=== PATIENT | female | born 1955 | race African-American/Black ===

== ENCOUNTER 2017-12-17 16:27 | Inpatient (IN) | payer MEDICARE, OTHER ==
--- NOTE | 2017-12-17 16:53 | ED Physician Chart ---
ED Chief Complaint/HPI - Patient Information Date Seen:: 12/17/17 Time Seen:: 16:40 Chief Complaint:: Diarrhea History of Present Illness:: onset x 2 days of intermittent, diffuse, crampy abdominal pain, N/V/D, hematochezia, and melena; no report of trauma, H/As, S/T, neck pain, C/P, SOB, cough, A/C, fever, chills, or urinary s/s Historian:: Patient, EMS Review:: Nurse's Note Reviewed, Old Chart Reviewed, EMS run form Reviewed ED Past Medical History - Past Medical History Obtainable: Yes Past Medical History: HTN, Asthma/COPD, PUD/GERD, Dementia, Other (Cirrhosis) Family History: Diabetes Melitus, HTN Social History: Smoker, Alcohol, No Drug Use, Single, Care Facility Surgical History: None Psychiatricy History: Dementia Medication: Reviewed ED Physical Exam - Physical Examination General/Constitutional: Awake, Well-developed, well-nourished, Alert, No distress, GCS 15, Non-toxic appearing, Ambulatory Head: Atraumatic Eyes: Lids, conjuctiva normal, PERRL, EOMI Skin: Nl inspection, No rash, No skin lesions, No ecchymosis, Well hydrated, No lymphadenopathy ENMT: External ears, nose nl, TM canals nl, Nasal exam nl, Lips, teeth, gums nl , Oropharynx nl, Tonsils nl Neck: Nontender, Full ROM w/o pain, No JVD, No nuchal rigidity, No bruit, No mass, No stridor Respiratory: Nl effort/Exclusion, Clear to Auscultation, No Wheeze/Rhonchi/Rales Cardio Vascular: RRR, No murmur, gallop, rubs, NL S1 S2, Carotid/Femoral/Distal pulses equal bilaterally GI: No tenderness/rebounding/guarding, No organomegaly, No hernia, Normal BS's, Nondistended, No mass/bruits, No McBurney tenderness : No CVA tenderness Extremities: No tenderness or effusion, Full ROM, normal strength in all extremities, No edema, Normal digits & nails Neuro/Psych: Alert/oriented, DTR's symmetric, Normal sensory exam, Normal motor strength, Judgement/insight normal, Mood normal, Normal gait, No focal deficits Misc: Normal back, No paraspinal tenderness ED Labs/Radiology/EKG Results - Lab Results Comments:: WBC: 11.7; H/H; 9.3/27.9;; Na+: 130; K+: 6.2; BUN: 107; Cr: 3.6;; Glucose: 19; LA: 7.66; Troponin: 0.19; Ammonia: 64 - Radiology Results Comments:: CXR: + infiltrate; CM - EKG Interpretations EKG Time:: 17:34 Rate & Rhythm: 88; NSR Comments:: LVH; non-specific st-t changes ED Septic Shock - . Is Septic Shock (SBP<90, OR Lactate>4 mmol\L) present?: No ED Reassessment (Disposition) - Reassessment Reassessment Condition:: Improved - Diagnosis Diagnosis:: Dx: Leukocytosis; AMS; ALOC; DM; ESRD; Pre-Renal Azotemia; Hyponatremia; Anemia ; Hyperkalemia; Sepsis; Hepatic Encephalopathy; Myocardial Ischemia; Acidosis; Hypoglycemia; PNA; Cirrhosis; Hepatitis - Aftercare/Follow up Instructions Aftercare/Follow-Up Instructions:: Counseled pt regarding lab results/diagnosis & need follow up, Counseled pt & family regarding lab results/diagnosis & need follow up - Patient Disposition Discharge/Transfer:: Acute Care w/in this hosp Accepting Physician:: Dr. Tinoco Time Called:: 1829 Time Responded:: 18:30 Admitted to:: ICU Spoke to:: Dr. Tinoco Admitting Medical Physician:: Dr. Tinoco Condition at Disposition:: Stable, Improved
[2017-12-17] MEDS ORDERED: Sodium Chloride 0.9% 1,000 ML IV ONE ×3 (16:54→20:01)
[2017-12-17 17:42] LABS: % BASOPHILS 0.3 % (0.0-2.0); % EOSINOPHILS 0.2 % (0.0-5.0); % MONOCYTES 8.3 % (2.0-10.0); % NEUTROPHILS 79.2 % (40.0-80.0); HEMATOCRIT 27.9 % (41.0-60); HEMOGLOBIN 9.3 gm/dL (12-16); LYMPHOCYTE ABSOLUTE 1.4 Th/cmm (1.5-3.0); MEAN CELL VOLUME 92.5 fl (81-100); MEAN CORPUSCULAR HEMOGLOBIN 30.9 pg (27.0-31.0); MEAN CORPUSCULAR HGB CONC 33.4 pg (28.0-36.0); MEAN PLATELET VOLUME 7.6 fl; NEUTROPHILE ABSOLUTE 9.3 Th/cmm (1.8-8.0); PLATELET COUNT 123 Th/cmm (150-400); RED BLOOD COUNT 3.01 Mil/cmm (3.80-5.10); RED CELL DISTRIBUTION WIDTH 15.6 % (11.5-20.0); WHITE BLOOD COUNT 11.7 Th/cmm (4.8-10.8)
[2017-12-17 17:51] LABS: ALB/GLOB RATIO 0.4 (1.0-1.8); ANION GAP 24.9 (7.0-16.0); BILIRUBIN,TOTAL 3.2 mg/dL (0.3-1.0); CALCIUM SERUM 9.6 mg/dL (8.6-10.3); CARBON DIOXIDE 19.3 mEq/L (21.0-31.0); CREATININE - SERUM 3.6 mg/dL (0.6-1.2); GFR AFRICAN-AMERICAN 16.5 ml/min (>90); GFR NON AFRICAN-AMERICAN 13.7 ml/min; TOTAL PROTEIN,SERUM 6.6 gm/dL (6.0-8.3)
[2017-12-17 17:57] LABS: INR 2.33 (0.5-1.4); PROTHROMBIN TIME (TEST) 25.4 SECONDS (9.5-11.5)
[2017-12-17 17:59] LABS: POTASSIUM SERUM 6.2 mEq/L (3.5-5.1)
[2017-12-17] MEDS ORDERED: Dextrose 50% 50 mL Abboject IVP ONE (18:05)
[2017-12-17] MEDS ORDERED: Dextrose 50% 50 mL Abboject IVP STA (18:14)
[2017-12-17] MEDS ORDERED: INSULIN HUMAN REGULAR 100 UNITS/ML UNIT IV ONE (18:15)
[2017-12-17] MEDS ORDERED: Sodium Bicarbonate 8.4% 50mEq PFS IVP STA (18:16)
[2017-12-17] MEDS ORDERED: Calcium Gluconate 1 GM in Dextrose 5% 100 ML IV ONE (18:17)
[2017-12-17] MEDS ORDERED: Sodium Bicarbonate 8.4% 50mEq PFS IVP ONE (18:29)
[2017-12-17] MEDS ORDERED: Levofloxacin 500mg/100mL 500 MG/100 ML BAG IV ONE ×2 (18:30→19:10)
[2017-12-17] MEDS ORDERED: INSULIN ASPART, RECOMBINANT 100 UNITS/ML SUBQ ONE (18:52)
[2017-12-17] MEDS ORDERED: Mag Sulfate 2gm/50mL Premix 2 GM/50 ML BAG IV PRN (19:44)
[2017-12-17] MEDS ORDERED: Potassium Chloride 20 mEq ER Tab PO PRN (19:44)
[2017-12-17 20:10] LABS: URINE MICROSCOPIC INDICATED? YES; URINE SOURCE FOLEY PORT
[2017-12-17 20:11] LABS: URINE BILIRUBIN NEGATIVE (NEGATIVE); URINE BLOOD TRACE (NEGATIVE); URINE GLUCOSE (UA) NEGATIVE (NEGATIVE); URINE KETONE NEGATIVE (NEGATIVE); URINE LEUKOCYTE ESTERASE MODERATE (NEGATIVE); URINE NITRATE NEGATIVE (NEGATIVE); URINE PROTEIN NEGATIVE (NEGATIVE); URINE UROBILINOGEN 0.2 E.U./dL (0.2 - 1.0)
[2017-12-17 20:17] LABS: URINE CLARITY CLOUDY (CLEAR); URINE COLOR YELLOW
[2017-12-17 20:20] LABS: URINE AMORPHOUS SEDIMENT FEW URATES (NONE SEEN); URINE BACTERIA MANY /hpf (NONE SEEN); URINE EPITHELIAL CELLS OCCASIONAL /lpf (FEW)
[2017-12-17] MEDS: D5-0.9%NS 1,000 ML IV SCH (21:40)
[2017-12-17] MEDS: Morphine Sulfate 4 mg/mL 1mL Syr IVP PRN (22:27)
--- NOTE | 2017-12-17 23:31 | Consultation ---
Consult Note - Consult Note Service Date: 12/17/17 Referring Physician: Brennan Tinoco Consult Note: PHYSICIAN Consultation Note: Date of Admission: 12/17/17 Purpose of Consultation: Sepsis 2/2 UTI Chief Complaint: Patient PITER TURNER was admitted to location Intensive Care Unit with SEPSIS. History of Present Illness: 62 year-old female with history of ...... Past Medical History: Allergies Allergy/AdvReac Type Severity Reaction Status Date / Time No Known Allergies Allergy Verified 12/17/17 16:50 Vital Signs Temp 97.1 F 12/17/17 20:15 Pulse 103 12/17/17 23:00 Resp 14 12/17/17 23:00 BP 93/39 12/17/17 23:00 Pulse Ox 96 12/17/17 23:00 Intake & Output 12/17/17 12/17/17 12/18/17 06:59 18:59 06:59 Intake Total 1000 Output Total 300 Balance 700 Weight (lbs) 49.895 kg Intake: Intake, IV Amount 1000 Output: Urine 300 Other: Weight Source Estimated Laboratory Results - last 24 hr 12/17/17 12/17/17 12/17/17 19:34 19:40 19:50 POC Glucose 168 H Whole Bld Lactic Acid 8.44 H* Urine Source [place] Urine Color YELLOW Urine Clarity CLOUDY H Urine pH 5.0 Ur Specific Hob[place] 1.025 Urine Protein NEGATIVE Urine Glucose (UA) NEGATIVE Urine Ketones NEGATIVE Urine Blood TRACE Urine Nitrate NEGATIVE Urine Bilirubin NEGATIVE Urine Urobilinogen 0.2 Ur Leukocyte Esterase MODERATE H Urine RBC 10-25 H Urine WBC 6-10 H Ur Epithelial Cells OCCASIONAL Calcium Oxalate Crystal FEW Amorphous Sediment FEW URATES Urine Bacteria MANY H Home Medication Medication Instructions Recorded Type Dronabinol [Marinol] 5 mg PO BID 12/17/17 History Ferrous Sulfate [Iron] 325 mg PO BID 12/17/17 History Folic Acid [Folate*] 1 mg PO DAILY 12/17/17 History Furosemide [Lasix] 40 mg PO BID 12/17/17 History Guaifenesin DM [Robitussin DM] 10 ml PO Q6HR PRN 12/17/17 History Lactulose 30 ml PO Q8H 12/17/17 History Levothyroxine Sodium 50 mcg PO DAILY 12/17/17 History Lidocaine 5% Patch [Lidoderm 5% 1 patch TP DAILY 12/17/17 History Patch] Multivitamin with Minerals 1 tab PO DAILY 12/17/17 History [Multivitamins with Minerals] Rifaximin [Xifaxan] 550 mg PO BID 12/17/17 History Spironolactone 50 mg PO BID 12/17/17 History Tramadol HCl [Ultram] 50 mg PO Q4H PRN 12/17/17 History Zinc Oxide Ointment [Zinc Oxide] 1 appl TP QSHIFT 12/17/17 History Current Medications Generic Name Dose Route Start Last Admin Trade Name Freq PRN Reason Stop Dose Admin Acetaminophen 650 mg 12/17/17 19:44 Tylenol PO 02/15/18 19:43 Q6H PRN HEADACHE/TEMP ABOVE 100F Sodium Chloride 1,000 mls @ 100 mls/hr 12/17/17 16:54 12/17/17 17:54 Nacl 0.9% IV 12/18/17 02:53 100 mls/hr .Q10H ONE Administration Dextrose/Sodium Chloride 1,000 mls @ 125 mls/hr 12/17/17 19:45 12/17/17 21:40 D5-0.9%Ns IV 02/15/18 19:44 125 mls/hr .Q8H WALKER Administration Magnesium Sulfate 2 gm in 50 mls @ 25 mls/hr 12/17/17 19:44 Magnesium Sulfate Premix IV 02/15/18 19:43 DAILY PRN Magnesium level less than 1.6 Lorazepam 1 mg 12/17/17 19:44 Ativan IVP 02/15/18 19:43 Q4HR PRN Anxiety Protocol Magnesium Oxide 400 mg 12/17/17 19:44 Mag-Oxide PO 02/15/18 19:43 BID PRN Mg less than 1.9 Miscellaneous 1 ea 12/17/17 19:43 Vancomycin Iv Per Pharmacy 02/15/18 19:42 PRN PRN PROTOCOL Morphine Sulfate 1 mg 12/17/17 19:44 12/17/17 22:27 Morphine IVP 02/15/18 19:43 1 mg Q4HR PRN Administration Severe Pain Ondansetron HCl 4 mg 12/17/17 19:44 Zofran IVP 02/15/18 19:43 Q6H PRN Nausea / Vomiting Potassium Chloride 40 meq 12/17/17 19:44 Klor-Con PO 02/15/18 19:43 DAILY PRN k level less than 3.5 Zolpidem Tartrate 10 mg 12/17/17 19:44 Ambien PO 02/15/18 19:43 HS PRN Insomnia Review of Systems: A 12 point ROS was reviewed with the pertinent positive and negatives noted in the HPI. Family Medical History [place]. Physical Exam: General: CACHECTIC, NO IN DISTRESS,ORAL HYGIENE IS VERY POOR HEENT: Head normocephalic, atraumatic. Oral cavity: moist, pink tongue, eyes: pallor is present. no icterus. Pupil PERRLA< EOMI. Neck: Supple no JVD, no carotid bruit. Cardio: S1 and S2 WNL. regular rhythm. no murmur, no gallop. Pupil PERRLA. EOMI. Respiratory: CTAP Abdominal: Soft NT ND BS present. Genital/Urinary: Extremities: NCCE. Neurological: Lethargic, neck supple. no neckk stiffness. Assessment: 1, Sepsis 2. uti. 3. DM1. 4. HAMILTON in CKD. 5. Severe Protein calorie malnutrition. Plan: Continue zosyn and vanco IV. Contidion critical and prognosis is poor. Signed, Alan David M.D. [id number]
[2017-12-18 04:52] LABS: MEAN CORPUSCULAR HEMOGLOBIN 31.5 pg (27.0-31.0)
[2017-12-18 05:04] LABS: MEAN CELL VOLUME 92.3 fl (81-100); MEAN CORPUSCULAR HGB CONC 34.1 pg (28.0-36.0); MEAN PLATELET VOLUME 7.9 fl; PLATELET COUNT 79 Th/cmm (150-400); RED BLOOD COUNT 2.22 Mil/cmm (3.80-5.10); RED CELL DISTRIBUTION WIDTH 15.6 % (11.5-20.0)
[2017-12-18 05:06] LABS: ANION GAP 16.7 (7.0-16.0); CALCIUM SERUM 7.1 mg/dL (8.6-10.3); CARBON DIOXIDE 14.6 mEq/L (21.0-31.0); CREATININE - SERUM 2.4 mg/dL (0.6-1.2); GFR AFRICAN-AMERICAN 26.4 ml/min (>90); GFR NON AFRICAN-AMERICAN 21.8 ml/min; POTASSIUM SERUM 3.3 mEq/L (3.5-5.1)
[2017-12-18 05:34] LABS: WHITE BLOOD COUNT 14.2 Th/cmm (4.8-10.8)
[2017-12-18 05:35] LABS: HEMATOCRIT 20.5 % (41.0-60); MANUAL DIFF REQUIRED? YES
[2017-12-18 06:05] LABS: BAND NEUTROPHILE 7 % (0-10); EOSINOPHIL 1 % (0-5); LYMPHOCYTE 7 % (20-50); MONOCYTE 2 % (2-10); NEUTROPHILS 83 % (40-80); PLATELET ESTIMATE DECREASED PLATELETS (NORMAL); TOTAL CELLS COUNTED 100
[2017-12-18] MEDS ORDERED: INSULIN HUMAN REGULAR 100 UNITS/ML UNIT SUBQ ONE (06:40)
--- NOTE | 2017-12-18 07:33 | Diagnostic Imaging Report ---
Portable chest x-ray HISTORY: Nasogastric tube placement The exam is centered over the upper abdomen. The upper chest is off the [id number]. Compared with an exam performed earlier in the day (2030), a nasogastric tube appears to extend into the upper gastric fundal region. This may be advanced 5-6 cm. There is a nonspecific gas pattern nondilated bowel. IMPRESSION: 1. Nasogastric tube projecting over the upper gastric fundal region. This may be advanced approximately 5-6 cm.
--- NOTE | 2017-12-18 07:38 | Diagnostic Imaging Report ---
CHEST X-RAY: AP view INDICATION: pain COMPARISON: None FINDINGS: There is elevation of the left hemidiaphragm increased left basal lung markings. Gas distended loops of bowel the upper abdomen are noted. No pleural effusions. Heart size is normal. Degenerative changes of the spine are noted with scoliosis. IMPRESSION: Left basal atelectasis versus infiltrate with elevation of the left hemidiaphragm. Possible ileus. Consider abdominal series or KUB if indicated.
[2017-12-18] MEDS ORDERED: Potassium Phosphate 20 MMOLE in Sodium Chloride 0.9% 250 ML IV ONE (09:16)
--- NOTE | 2017-12-18 11:08 | History & Physical ---
ADMIT DATE: 12/17/2017 CHIEF COMPLAINT: Overall decline blood in the rectum and the weight loss and worsening confusion. HISTORY OF PRESENT ILLNESS: The patient is a 62-year-old female. She appears older than her stated age. She is a patient of mine from [facility]. She has history of lumbar spinal stenosis L4-L5 along with a hepatitis C and liver cirrhosis and chronic low back pain and pulmonary hypertension as well. For the last few days, she has been refusing to eat. She has been more lethargic and more confused than usual. She has been very agitated and has been experiencing worsening confusion as well. She has been experiencing bleeding through the rectum as well. She was sent to the hospital for further workup and treatment. PAST MEDICAL HISTORY: Significant for pulmonary hypertension, liver cirrhosis, hepatitis C, seizure disorder, lumbar spinal stenosis and pulmonary hypertension. SOCIAL HISTORY: No history of recent alcohol, tobacco or drug abuse. FAMILY HISTORY: Noncontributory. ALLERGIES: No known drug allergies. PAST SURGICAL HISTORY: No recent major surgeries. MEDICATIONS: All medication reviewed. She is currently n.p.o. REVIEW OF SYSTEMS: GENERAL: Positive recent fatigue, worsening confusion and decreased appetite. She has been eating for at least a few days now. HEENT: No recent head trauma, change in vision, taste, hearing, or smell. Oral: No recent pain or discharge. NECK: No recent tracheal deviation. PSYCHIATRIC: Positive for worsening labile mood and confusion. NEUROLOGIC: Positive for worsening confusion. GASTROINTESTINAL: She has history of liver cirrhosis from hepatitis C. SKIN: No recent rashes. GENITOURINARY: No recent hematuria. GASTROINTESTINAL: Positive for diarrhea and bright red blood per rectum for the last couple of days. NEUROLOGIC: She has history of seizure disorder. MUSCULOSKELETAL: Positive for L4-L5 spinal stenosis and muscle weakness. RESPIRATORY: She has history of pulmonary hypertension. PHYSICAL EXAMINATION: VITAL SIGNS: Temperature 97.3 degrees, heart rate is 103, respirations 18, blood pressure 105/45. Currently, no pain. GENERAL: No acute distress. She is awake, but not alert. She does respond to verbal stimulus. She recognizes her name. HEENT: No acute issues. NECK: Trachea is midline. CARDIOVASCULAR: She is in sinus tachycardia. ABDOMEN: Nontender, nondistended. SKIN: No rashes. RESPIRATORY: Decreased breath sounds bilaterally. EXTREMITIES: No edema. MUSCULOSKELETAL: She has decreased muscle mass and muscle strength upper and lower extremities. PSYCHIATRIC: She has labile mood. She is very confused. She has been trying to pull out her tubes as well. PSYCHIATRIC: Labile mood. ABDOMEN: Nontender, nondistended. RESPIRATORY: Decreased breath sounds bilaterally. GENITOURINARY: No hematuria is noted. EYES: No discharge. LABORATORY DATA: White count is 14, hemoglobin is 7 and platelet count is 79,000. INR is 2.33. Sodium 130, potassium 6.2, chloride 92, bicarbonate 19.3, BUN is 107, creatinine 3.6. Chest x-ray does not show pneumonia. Glucose was ____ 762. Lactic acid went from 8.44 to 6.09, calcium is 9.6, magnesium is 3.3, AST 668, ALT 166, troponin 0.19, albumin is 2.0. ASSESSMENT: 1. Sepsis. 2. Possible septic shock. 3. Severe anemia due to gastrointestinal hemorrhage. 4. Pulmonary hypertension. 5. Liver cirrhosis. 6. Hepatitis C. 7. Seizure disorder. 8. Metabolic encephalopathy. 9. L4-L5 spinal stenosis. 10. Coagulopathy due to liver failure. 11. Transaminitis due to liver cirrhosis and hepatitis C. 12. Severe malnutrition. 13. Diabetes mellitus, out of control. 14. Hyponatremia. 15. Hyperkalemia. PLAN: The patient holds a very poor prognosis. She has multiple issues GI along with the critical care and ID has been consulted. I will consult cardiology as well. I will transfuse one unit PRBC. She will be seeing the patient. She has been receiving aggressive hydration. The sodium improved from 130 to 138, potassium went to 3.3. She will get a K-rider today. INR is 2.33. She is not on any Coumadin right now. Avoid any anticoagulation. The platelets are a 79,000. She has thrombocytopenia due to liver cirrhosis and reactive thrombocytopenia as well. Nephrology has been consulted as well. The patient's lactic acid is trending down. Follow up on blood cultures. She is on vancomycin and pharmacy is dosing it. ID already saw the patient. Follow up on the cultures. Prognosis is poor. Avoid anticoagulation. JOB# [id number]
--- NOTE | 2017-12-18 11:54 | Consultation ---
Consult Note - Consult Note Service Date: 12/18/17 Consult Note: PHYSICIAN Consultation Note: Date of Admission: 12/17/17 Purpose of Consultation: acute kidney injury History of Present Illness: Patient PITER TURNER was admitted to location Intensive Care Unit with GI BLEED , SEPSIS, HYPONATREMIA, HYPERKALEMIA. Apparently pt with a h/o cirrhosis was found to have generalized weakness and rectal bleed as well as sepsis, unclear source. Renal consulted for evaluation of HAMILTON. On examination, pt is non-oliguric, cachectic and weak appearing. Past Medical History: DM2, cirrhosis, GI bleed as per above Family history: non-contributory Social history: no reported smoking or drug use, past ETOH use Allergies Allergy/AdvReac Type Severity Reaction Status Date / Time No Known Allergies Allergy Verified 12/17/17 16:50 Vital Signs Temp 97 F 12/18/17 08:00 Pulse 100 12/18/17 10:00 Resp 14 12/18/17 10:00 BP 90/36 12/18/17 10:00 Pulse Ox 100 12/18/17 10:00 Intake & Output 12/17/17 12/18/17 12/18/17 18:59 06:59 18:59 Intake Total 2250 Output Total 700 Balance 1550 Weight (lbs) 48.353 kg Intake: Intake, IV Amount 2000 D5-0.9%Ns 1,000 ml @ 125 1000 mls/hr IV .Q8H [facility] Rx#: [id number] Other 250 Output: Urine 700 Stool 0 Other: Weight Source [facility] Laboratory Results - last 24 hr 12/17/17 12/17/17 12/17/17 19:34 19:40 19:50 WBC RBC Hgb Hct MCV MCH MCHC Differential RDW Plt Count MPV Band Neutrophils % Neutrophils (Manual) Lymphocytes Monocytes Eosinophils Platelet Estimate Sodium Potassium Chloride Carbon Dioxide Anion Gap BUN Creatinine Est GFR ( Amer) Est GFR (Non-Af Amer) BUN/Creatinine Ratio Glucose POC Glucose 168 H Whole Bld Lactic Acid 8.44 H* Calcium Urine Source [place] Urine Color YELLOW Urine Clarity CLOUDY H Urine pH 5.0 Ur Specific Mack 1.025 Urine Protein NEGATIVE Urine Glucose (UA) NEGATIVE Urine Ketones NEGATIVE Urine Blood TRACE Urine Nitrate NEGATIVE Urine Bilirubin NEGATIVE Urine Urobilinogen 0.2 Ur Leukocyte Esterase MODERATE H Urine RBC 10-25 H Urine WBC 6-10 H Ur Epithelial Cells OCCASIONAL Calcium Oxalate Crystal FEW Amorphous Sediment FEW URATES Urine Bacteria MANY H Random Vancomycin HIV 1&2 Antibody Screen Blood Type Antibody Screen Crossmatch 12/17/17 12/18/17 12/18/17 23:15 03:33 03:33 WBC 14.2 H D RBC 2.22 L Hgb 7.0 L* D Hct 20.5 L* D MCV 92.3 MCH 31.5 H MCHC Differential 34.1 RDW 15.6 Plt Count 79 L MPV 7.9 Band Neutrophils % 7 Neutrophils (Manual) 83 H Lymphocytes 7 L Monocytes 2 Eosinophils 1 Platelet Estimate DECREASED PLATELETS Sodium 138 Potassium 3.3 L D Chloride 110 H Carbon Dioxide 14.6 L Anion Gap 16.7 H BUN 81 H* Creatinine 2.4 H Est GFR ( Amer) 26.4 Est GFR (Non-Af Amer) 21.8 BUN/Creatinine Ratio 33.8 Glucose 762 H* POC Glucose 107 H Whole Bld Lactic Acid Calcium 7.1 L Urine Source Urine Color Urine Clarity Urine pH Ur Specific Mack Urine Protein Urine Glucose (UA) Urine Ketones Urine Blood Urine Nitrate Urine Bilirubin Urine Urobilinogen Ur Leukocyte Esterase Urine RBC Urine WBC Ur Epithelial Cells Calcium Oxalate Crystal Amorphous Sediment Urine Bacteria Random Vancomycin HIV 1&2 Antibody Screen Blood Type Antibody Screen Crossmatch 12/18/17 12/18/17 12/18/17 03:33 03:33 09:24 WBC RBC Hgb Hct MCV MCH MCHC Differential RDW Plt Count MPV Band Neutrophils % Neutrophils (Manual) Lymphocytes Monocytes Eosinophils Platelet Estimate Sodium Potassium Chloride Carbon Dioxide Anion Gap BUN Creatinine Est GFR ( Amer) Est GFR (Non-Af Amer) BUN/Creatinine Ratio Glucose POC Glucose 287 H Whole Bld Lactic Acid 6.09 H* Calcium Urine Source Urine Color Urine Clarity Urine pH Ur Specific Mack Urine Protein Urine Glucose (UA) Urine Ketones Urine Blood Urine Nitrate Urine Bilirubin Urine Urobilinogen Ur Leukocyte Esterase Urine RBC Urine WBC Ur Epithelial Cells Calcium Oxalate Crystal Amorphous Sediment Urine Bacteria Random Vancomycin HIV 1&2 Antibody Screen NEGATIVE Blood Type Antibody Screen Crossmatch 12/18/17 12/18/17 12/18/17 10:20 10:20 10:20 WBC RBC Hgb Hct MCV MCH MCHC Differential RDW Plt Count MPV Band Neutrophils % Neutrophils (Manual) Lymphocytes Monocytes Eosinophils Platelet Estimate Sodium Potassium Chloride Carbon Dioxide Anion Gap BUN Creatinine Est GFR ( Amer) Est GFR (Non-Af Amer) BUN/Creatinine Ratio Glucose POC Glucose Whole Bld Lactic Acid 6.63 H* Calcium Urine Source Urine Color Urine Clarity Urine pH Ur Specific Mack Urine Protein Urine Glucose (UA) Urine Ketones Urine Blood Urine Nitrate Urine Bilirubin Urine Urobilinogen Ur Leukocyte Esterase Urine RBC Urine WBC Ur Epithelial Cells Calcium Oxalate Crystal Amorphous Sediment Urine Bacteria Random Vancomycin 9.4 HIV 1&2 Antibody Screen Blood Type AB POSITIVE Antibody Screen NEGATIVE Crossmatch See Detail Home Medication Medication Instructions Recorded Type Dronabinol [Marinol] 5 mg PO BID 12/17/17 History Ferrous Sulfate [Iron] 325 mg PO BID 12/17/17 History Folic Acid [Folate*] 1 mg PO DAILY 12/17/17 History Furosemide [Lasix] 40 mg PO BID 12/17/17 History Guaifenesin DM [Robitussin DM] 10 ml PO Q6HR PRN 12/17/17 History Lactulose 30 ml PO Q8H 12/17/17 History Levothyroxine Sodium 50 mcg PO DAILY 12/17/17 History Lidocaine 5% Patch [Lidoderm 5% 1 patch TP DAILY 12/17/17 History Patch] Multivitamin with Minerals 1 tab PO DAILY 12/17/17 History [Multivitamins with Minerals] Rifaximin [Xifaxan] 550 mg PO BID 12/17/17 History Spironolactone 50 mg PO BID 12/17/17 History Tramadol HCl [Ultram] 50 mg PO Q4H PRN 12/17/17 History Zinc Oxide Ointment [Zinc Oxide] 1 appl TP QSHIFT 12/17/17 History Current Medications Generic Name Dose Route Start Last Admin Trade Name Freq PRN Reason Stop Dose Admin Acetaminophen 650 mg 12/17/17 19:44 Tylenol PO 02/15/18 19:43 Q6H PRN HEADACHE/TEMP ABOVE 100F Bisacodyl 10 mg 12/18/17 16:00 Dulcolax 5 Mg Ec Tab PO 12/18/17 16:01 X1 ONE Dextrose/Sodium Chloride 1,000 mls @ 125 mls/hr 12/17/17 19:45 12/18/17 06:50 D5-0.9%Ns IV 02/15/18 19:44 Infused .Q8H WALKER Infusion Magnesium Sulfate 2 gm in 50 mls @ 25 mls/hr 12/17/17 19:44 Magnesium Sulfate Premix IV 02/15/18 19:43 DAILY PRN Magnesium level less than 1.6 Potassium Phosphate 20 mmole/ 256.6667 mls @ 42.5 mls/hr 12/18/17 09:16 12/18 10:44 Sodium Chloride IV 12/18/17 15:18 42.5 mls/hr X1 ONE Administration Vancomycin HCl 1 gm/ Sodium 250 mls @ 165 mls/hr 12/18/17 12:00 Chloride IV 12/18/17 13:30 1200 ONE Insulin Aspart 1 units 12/18/17 12:00 Novolog Insulin Sliding Scale SUBQ 02/16/18 11:59 Q6HR WALKER Protocol Lorazepam 1 mg 12/17/17 19:44 Ativan IVP 02/15/18 19:43 Q4HR PRN Anxiety Protocol Magnesium Oxide 400 mg 12/17/17 19:44 Mag-Oxide PO 02/15/18 19:43 BID PRN Mg less than 1.9 Miscellaneous 1 ea 12/17/17 19:43 Vancomycin Iv Per Pharmacy MC 02/15/18 19:42 PRN PRN PROTOCOL Morphine Sulfate 1 mg 12/17/17 19:44 12/17/17 22:27 Morphine IVP 02/15/18 19:43 1 mg Q4HR PRN Administration Severe Pain Ondansetron HCl 4 mg 12/17/17 19:44 Zofran IVP 02/15/18 19:43 Q6H PRN Nausea / Vomiting Pantoprazole Sodium 40 mg 12/18/17 07:00 12/18/17 09:09 Protonix IVP 02/16/18 06:59 40 mg Q12H WALKER Administration Polyethylene Glycol/Electrolytes 4,000 ml 12/18/17 17:00 Golytely NG 12/18/17 17:01 X1 ONE Potassium Chloride 40 meq 12/17/17 19:44 Klor-Con PO 02/15/18 19:43 DAILY PRN k level less than 3.5 Zolpidem Tartrate 10 mg 12/17/17 19:44 12/18/17 01:49 Ambien PO 02/15/18 19:43 10 mg HS PRN Administration Insomnia Review of Systems: A 12 point ROS was reviewed with the pertinent positive and negatives noted in the HPI. Physical Exam: General: cachectic elderly woman, NAD, lethargic HEENT: dry mucous membranes Cardio: tachycardic rate, nl rhythm, no m/r/g Respiratory: clear bilaterally Abdominal: active bowel sounds, nd, nt Extremities: no edema, + skin tenting on exam Neurological: somnolent Assessment: 1. 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 may consider albumin resuscitation in setting of cirrhosis/hypoalbuminemia but renal function appears to be improving - renal ultrasound for structural renal disease - urine indices for evaluation of ATN - continue supportive care 2. Sepsis secondary to unclear etiology - renal dosing antimicrobial therapy 3. Anemia secondary to GI bleed - hgb stable w/o indication for transfusion 4. Cirrhosis - noted on be on aldactone/lasix as home med - hold diuretics at this time, appears pre-renal Plan: As per above. D/w QUALITATIVE EXECUTIVE RESEARCHER at bedside Signed, Peterson Rodriguez [id number]
[2017-12-18] MEDS ORDERED: INSULIN ASPART SLIDING SCALE 100 UNITS/ML UNIT SUBQ SCH (12:00)
[2017-12-18] MEDS: INSULIN ASPART SLIDING SCALE 100 UNITS/ML UNIT SUBQ SCH ×2 (12:41→17:11)
--- NOTE | 2017-12-18 13:41 | Diagnostic Imaging Report ---
Abdominal ultrasound HISTORY: Abnormal liver function test There is a region of increased echogenicity that extends adjacent to the posterior inferior margin of the right lobe of the liver. Etiology is uncertain. A CT scan is recommended for further assessment and characterization. The exam of the gallbladder demonstrates small echogenic densities in the neck region with acoustic shadowing. Findings consistent with cholelithiasis. No biliary dilatation (common bile duct equals 6 mm). The pancreas cannot be seen due to bowel gas. No focal renal lesions. No hydronephrosis. No other definite retroperitoneal or intra-abdominal abnormalities. IMPRESSION: 1. Echogenic region extending along or within the periphery of the right lobe of the liver. Etiology uncertain. A CT scan would provide further assessment and evaluation. 2. Findings consistent with cholelithiasis
--- NOTE | 2017-12-18 14:38 | Diagnostic Imaging Report ---
CHEST X-RAY: AP view INDICATION: NG tube confirmation COMPARISON: Chest x-ray earlier the same day at 1702 FINDINGS: NG tube is seen with tip in the proximal stomach at the GE junction. Distended gas-filled stomach is noted. Gas-filled loops of bowel are also noted. IMPRESSION: NG tube with tip in the proximal stomach at the GE junction. Recommend advancement Distended gas-filled stomach and probable mild ileus.
--- NOTE | 2017-12-18 14:56 | Infectious Disease Prog Note ---
Infectious Disease Subjective - Review of Systems Service Date: 12/18/17 Events since last encounter: No new change. Subjective: No fever. Very cachectic. Infectious Disease Objective - Results Result Diagrams: 12/19/17 06:30 12/19/17 06:30 Recent Labs: Laboratory Last Values WBC 14.2 Th/cmm (4.8-10.8) H D 12/18/17 03:33 RBC 2.22 Mil/cmm (3.80-5.10) L 12/18/17 03:33 Hgb 7.0 gm/dL (12-16) L* D 12/18/17 03:33 Hct 20.5 % (41.0-60) L* D 12/18/17 03:33 MCV 92.3 fl (81-100) 12/18/17 03:33 MCH 31.5 pg (27.0-31.0) H 12/18/17 03:33 MCHC Differential 34.1 pg (28.0-36.0) 12/18/17 03:33 RDW 15.6 % (11.5-20.0) 12/18/17 03:33 Plt Count 79 Th/cmm (150-400) L 12/18/17 03:33 MPV 7.9 fl 12/18/17 03:33 Neutrophils % 79.2 % (40.0-80.0) 12/17/17 17:22 Band Neutrophils % 7 % (0-10) 12/18/17 03:33 Lymphocytes % 12.0 % (20.0-50.0) L 12/17/17 17:22 Monocytes % 8.3 % (2.0-10.0) 12/17/17 17:22 Eosinophils % 0.2 % (0.0-5.0) 12/17/17 17:22 Basophils % 0.3 % (0.0-2.0) 12/17/17 17:22 Neutrophils (Manual) 83 % (40-80) H 12/18/17 03:33 Lymphocytes 7 % (20-50) L 12/18/17 03:33 Monocytes 2 % (2-10) 12/18/17 03:33 Eosinophils 1 % (0-5) 12/18/17 03:33 Platelet Estimate DECREASED PLATELETS (NORMAL) 12/18/17 03:33 PT 25.4 SECONDS (9.5-11.5) H 12/17/17 17:22 INR 2.33 (0.5-1.4) H 12/17/17 17:22 PTT (Actin FS) 37.8 SECONDS (26.0-38.0) 12/17/17 17:22 Sodium 138 mEq/L (136-145) 12/18/17 03:33 Potassium 3.3 mEq/L (3.5-5.1) L D 12/18/17 03:33 Chloride 110 mEq/L (98-107) H 12/18/17 03:33 Carbon Dioxide 14.6 mEq/L (21.0-31.0) L 12/18/17 03:33 Anion Gap 16.7 (7.0-16.0) H 12/18/17 03:33 BUN 81 mg/dL (7-25) H* 12/18/17 03:33 Creatinine 2.4 mg/dL (0.6-1.2) H 12/18/17 03:33 Est GFR ( Amer) 26.4 ml/min (>90) 12/18/17 03:33 Est GFR (Non-Af Amer) 21.8 ml/min 12/18/17 03:33 BUN/Creatinine Ratio 33.8 12/18/17 03:33 Glucose 762 mg/dL (70-105) H* 12/18/17 03:33 POC Glucose 228 MG/DL (70 - 105) H 12/18/17 11:41 Whole Bld Lactic Acid 6.63 mmol/L (0.60-1.99) H* 12/18/17 10:20 Calcium 7.1 mg/dL (8.6-10.3) L 12/18/17 03:33 Magnesium 3.3 mg/dL (1.9-2.7) H 12/17/17 17:22 Total Bilirubin 3.2 mg/dL (0.3-1.0) H 12/17/17 17:22 AST 668 U/L (13-39) H 12/17/17 17:22 ALT 166 U/L (7-52) H 12/17/17 17:22 Alkaline Phosphatase 112 U/L (34-104) H 12/17/17 17:22 Ammonia 64 umol/L (16-53) H 12/17/17 17:22 Creatine Kinase 113 U/L (30-223) 12/17/17 17:22 Troponin I 0.19 ng/mL (0.01-0.05) H* 12/17/17 17:22 B-Natriuretic Peptide 40.8 pg/mL (5.0-100.0) 12/17/17 17:22 Total Protein 6.6 gm/dL (6.0-8.3) 12/17/17 17:22 Albumin 2.0 gm/dL (3.7-5.3) L 12/17/17 17:22 Globulin 4.6 gm/dL 12/17/17 17:22 Albumin/Globulin Ratio 0.4 (1.0-1.8) L 12/17/17 17:22 Triglycerides 85 mg/dL (<150) 12/17/17 17:22 Cholesterol 71 mg/dL (<200) 12/17/17 17:22 LDL Cholesterol Direct 53 mg/dL (75-193) L 12/17/17 17:22 HDL Cholesterol 4 mg/dL (23-92) L 12/17/17 17:22 Amylase 14 U/L (29-103) L 12/17/17 17:22 Lipase 22 U/L (11-82) 12/17/17 17:22 Serum , Qual NEGATIVE (NEGATIVE) 12/17/17 17:22 Urine Source SO PORT 12/17/17 19:50 Urine Color YELLOW 12/17/17 19:50 Urine Clarity CLOUDY (CLEAR) H 12/17/17 19:50 Urine pH 5.0 (4.6 - 8.0) 12/17/17 19:50 Ur Specific [place] 1.025 (1.005-1.030) 12/17/17 19:50 Urine Protein NEGATIVE mg/dL (NEGATIVE) 12/17/17 19:50 Urine Glucose (UA) NEGATIVE mg/dL (NEGATIVE) 12/17/17 19:50 Urine Ketones NEGATIVE mg/dL (NEGATIVE) 12/17/17 19:50 Urine Blood TRACE (NEGATIVE) 12/17/17 19:50 Urine Nitrate NEGATIVE (NEGATIVE) 12/17/17 19:50 Urine Bilirubin NEGATIVE (NEGATIVE) 12/17/17 19:50 Urine Urobilinogen 0.2 E.U./dL (0.2 - 1.0) 12/17/17 19:50 Ur Leukocyte Esterase MODERATE (NEGATIVE) H 12/17/17 19:50 Urine RBC 10-25 /hpf (0-5) H 12/17/17 19:50 Urine WBC 6-10 /hpf (0-5) H 12/17/17 19:50 Ur Epithelial Cells OCCASIONAL /lpf (FEW) 12/17/17 19:50 Calcium Oxalate Crystal FEW /hpf 12/17/17 19:50 Amorphous Sediment FEW URATES (NONE SEEN) 12/17/17 19:50 Urine Bacteria MANY /hpf (NONE SEEN) H 12/17/17 19:50 Random Vancomycin 9.4 ug/mL (5.0-40.0) 12/18/17 10:20 HIV 1&2 Antibody Screen NEGATIVE (NEG) 12/18/17 03:33 Blood Type AB POSITIVE 12/18/17 10:20 Antibody Screen NEGATIVE 12/18/17 10:20 Crossmatch See Detail 12/18/17 10:20 - Physical Exam Vitals and I&O: Vital Signs Temp 97 F 12/18/17 12:00 Pulse 102 12/18/17 14:00 Resp 13 12/18/17 14:00 BP 96/30 12/18/17 14:00 Pulse Ox 100 12/18/17 14:00 Intake & Output 12/17/17 12/18/17 12/18/17 18:59 06:59 18:59 Intake Total 2250 Output Total 700 Balance 1550 Weight (lbs) 48.353 kg Intake: Intake, IV Amount 2000 D5-0.9%Ns 1,000 ml @ 125 1000 mls/hr IV .Q8H [facility] Rx#: [id number] Other 250 Output: Urine 700 Stool 0 Other: Weight Source Bedscale Active Medications: Current Medications Acetaminophen (Tylenol) 650 mg PO Q6H PRN PRN Reason: HEADACHE/TEMP ABOVE 100F Stop: 02/15/18 19:43 Bisacodyl (Dulcolax 5 Mg Ec Tab) 10 mg PO X1 ONE Stop: 12/18/17 16:01 Dextrose/Sodium Chloride (D5-0.9%Ns) 1,000 mls @ 125 mls/hr IV .Q8H [facility] Stop: 02/15/18 19:44 Last Infusion: 12/18/17 06:50 Dose: Infused Magnesium Sulfate (Magnesium Sulfate Premix) 2 gm in 50 mls @ 25 mls/hr IV DAILY PRN PRN Reason: Magnesium level less than 1.6 Stop: 02/15/18 19:43 Potassium Phosphate 20 mmole/ (Sodium Chloride) 256.6667 mls @ 42.5 mls/hr IV X1 ONE Stop: 12/18/17 15:18 Last Admin: 12/18/17 10:44 Dose: 42.5 mls/hr Insulin Aspart (Novolog Insulin Sliding Scale) 0 units SUBQ Q6H [facility] PRN Reason: Protocol Stop: 02/16/18 11:59 Last Admin: 12/18/17 12:41 Dose: 6 units Lorazepam (Ativan) 1 mg IVP Q4HR PRN; Protocol PRN Reason: Anxiety Stop: 02/15/18 19:43 Magnesium Oxide (Mag-Oxide) 400 mg PO BID PRN PRN Reason: Mg less than 1.9 Stop: 02/15/18 19:43 Miscellaneous (Vancomycin Iv Per Pharmacy) 1 ea MC PRN PRN PRN Reason: PROTOCOL Stop: 02/15/18 19:42 Morphine Sulfate (Morphine) 1 mg IVP Q4HR PRN PRN Reason: Severe Pain Stop: 02/15/18 19:43 Last Admin: 12/17/17 22:27 Dose: 1 mg Ondansetron HCl (Zofran) 4 mg IVP Q6H PRN PRN Reason: Nausea / Vomiting Stop: 02/15/18 19:43 Pantoprazole Sodium (Protonix) 40 mg IVP Q12H [facility] Stop: 02/16/18 06:59 Last Admin: 12/18/17 09:09 Dose: 40 mg Polyethylene Glycol/Electrolytes (Golytely) 4,000 ml NG X1 ONE Stop: 12/18/17 17:01 Potassium Chloride (Klor-Con) 40 meq PO DAILY PRN PRN Reason: k level less than 3.5 Stop: 02/15/18 19:43 Sodium Bicarbonate (Sodium Bicarbonate) 650 mg PO TID [facility] PRN Reason: Protocol Stop: 02/16/18 13:59 Zolpidem Tartrate (Ambien) 10 mg PO HS PRN PRN Reason: Insomnia Stop: 02/15/18 19:43 Last Admin: 12/18/17 01:49 Dose: 10 mg General: no acute distress, cachectic HEENT: atraumatic, normocephalic, PERRLA, EOMI, moist mucous membrane Neck: supple, no thyromegaly Cardiovascular: S1S2, regular Lungs: clear to auscultation bilaterally, clear to percussion Abdomen: soft, no tender, no hepatomegaly Extremities: no cyanosis, no clubbing, no edema Neurological: awake, alert Skin: intact Infectious Disease Assmt/Plan - Problem List Patient Problems: All Active Problems BLOOD IN STOOL (Acute) - Assessment Assessment: 1, Sepsis 2. uti. 3. DM1. 4. HAMILTON in CKD. - Plan Plan: Continue symptomatic treatment. Antibiotic-ross Zosyn.
[2017-12-18 18:15] LABS: A1C % 4.6 % (4.0-6.0)
[2017-12-18] MEDS: D5-0.9%NS 1,000 ML IV SCH (18:21)
[2017-12-18] MEDS: Morphine Sulfate 4 mg/mL 1mL Syr IVP PRN (23:33)
[2017-12-19] MEDS: INSULIN ASPART SLIDING SCALE 100 UNITS/ML UNIT SUBQ SCH ×4 (00:56→18:34)
[2017-12-19] MEDS: D5-0.9%NS 1,000 ML IV SCH (03:35)
[2017-12-19] MEDS ORDERED: Sodium Chloride 0.9% 1,000 ML IV ONE (06:15)
[2017-12-19 06:49] LABS: MEAN CELL VOLUME 92.2 fl (81-100); MEAN CORPUSCULAR HEMOGLOBIN 32.2 pg (27.0-31.0); MEAN CORPUSCULAR HGB CONC 34.9 pg (28.0-36.0); MEAN PLATELET VOLUME 7.5 fl; PLATELET COUNT 57 Th/cmm (150-400); RED BLOOD COUNT 2.07 Mil/cmm (3.80-5.10); RED CELL DISTRIBUTION WIDTH 14.9 % (11.5-20.0); WHITE BLOOD COUNT 10.8 Th/cmm (4.8-10.8)
[2017-12-19 06:56] LABS: HEMATOCRIT 19.1 % (41.0-60); HEMOGLOBIN 6.7 gm/dL (12-16); MANUAL DIFF REQUIRED? YES
[2017-12-19 07:02] LABS: INR 3.66 (0.5-1.4); PROTHROMBIN TIME (TEST) 40.8 SECONDS (9.5-11.5)
[2017-12-19 07:15] LABS: ACETAMINOPHEN < 10.0 ug/mL (10.0-30.0); ALB/GLOB RATIO 0.7 (1.0-1.8); ALBUMIN < 1.5 gm/dL (3.7-5.3); ALKALINE PHOSPHATASE 71 U/L (34-104); ANION GAP 11.5 (7.0-16.0); BILIRUBIN,DIRECT 1.82 mg/dL (0.0-0.2); BILIRUBIN,TOTAL 2.8 mg/dL (0.3-1.0); BUN - UREA NITROGEN 71 mg/dL (7-25); CALCIUM SERUM 7.4 mg/dL (8.6-10.3); CARBON DIOXIDE 21.5 mEq/L (21.0-31.0); CHLORIDE 116 mEq/L (98-107); CREATININE - SERUM 1.7 mg/dL (0.6-1.2); GFR AFRICAN-AMERICAN 39.3 ml/min (>90); GFR NON AFRICAN-AMERICAN 32.5 ml/min; GLUCOSE 313 mg/dL (70-105); SGOT 812 U/L (13-39); SGPT/ALT 270 U/L (7-52); SODIUM SERUM 147 mEq/L (136-145); TOTAL PROTEIN,SERUM 3.8 gm/dL (6.0-8.3)
[2017-12-19 07:16] LABS: BAND NEUTROPHILE 1 % (0-10); BASOPHIL 0 % (0-3); EOSINOPHIL 0 % (0-5); HYPOCHROMIA 1+; LYMPHOCYTE 8 % (20-50); MONOCYTE 2 % (2-10); NEUTROPHILS 89 % (40-80); TOTAL CELLS COUNTED 100
[2017-12-19 07:17] LABS: PLATELET ESTIMATE DECREASED PLATELETS (NORMAL)
--- NOTE | 2017-12-19 07:51 | Diagnostic Imaging Report ---
CT abdomen and pelvis without intravenous contrast Indication: Sepsis, anemia, colitis, possible abscess Comparison: None, Technique: Axial images were obtained from the lung bases to the bilateral proximal femurs without IV contrast. Coronal reconstructions were made. total DLP: 432, CTDI9.4 FINDINGS: Exam is limited due to motion. Evaluation of the solid organs also limited due to lack of IV contrast. Small bilateral effusions are seen with bibasal infiltrates and left basal consolidative changes. Limited assessment of the liver demonstrates no obvious focal lesions. Gallstones are noted with high density in the gallbladder. No focal splenic lesions. The pancreas is poorly visualized on this exam. The adrenal glands are poorly visualized. Punctate left renal stone is noted. No hydronephrosis. Quintanilla catheter and air is seen within mildly distended urinary bladder. There appear to be small stones along the posterior right-sided urinary bladder wall. Moderate stool is seen. Mild generalized areas of large bowel wall thickening are noted with fluid seen throughout the large bowel. Areas of bowel wall thickening are most pronounced in the ascending colon. The appendix is not visualized. There is a small pocket of gas within the right lower quadrant along the bowel wall. This is best seen on the image 41, series 3 and image 42 series 2. Small amount of free fluid is noted. Mild atherosclerosis is noted. Mild anasarca is noted. Multiple spinal compression deformities are noted. Osteopenia is noted. There is evidence of old left pubic bone fracture. There may have been old left inferior pubic ramus fracture. There is also a severely comminuted fracture of what is assumed to be the T8 vertebral body with posterior retropulsion and bone fragments seen within the spinal canal. IMPRESSION: Areas of scattered large bowel wall thickening are noted greatest in the ascending colon with fluid-filled loops of large bowel. Findings may be due to inflammatory process/colitis. Clinical correlation recommended. There is a small pocket of gas in the right lower quadrant, location difficult to determine, and may be within a small diverticulum or possibly even adjacent to the bowel wall. Otherwise no gross free air is identified. Clinical correlation and follow-up surveillance is recommended. Severe comminuted fracture what is assumed to be the T8 vertebral body with retropulsion and bone fragments within the spinal canal. This may be impinging on the spinal cord. The fracture line may extend to the left facet. Please correlate with clinical findings. Recommend further assessment of this finding with MRI examination. Distended urinary bladder continue Quintanilla catheter with air in the urinary bladder noted. Clinical correlation recommended. Small right posterior urinary bladder calculi. Gallstones and high density possibly due to sludge. Consider follow-up with ultrasound. Minimal ascites. Anasarca. Osteopenia and multiple spinal compression deformities. Old left pelvic fractures. Bibasal infiltrates and small effusions.
--- NOTE | 2017-12-19 08:13 | General Progress Note ---
Subjective - Review of Systems Service Date: 12/19/17 Subjective: Pt seen and eval. Had golytely last night in prep for colonoscopy today. She continues to have mauri blood in rectum. GI has ordered 2 units PRBCs today. No n,v or cp. Afebrile. BS have been high. No drips. K very low. Pt had CT abd and pelvis done. She has bl asp pna as well. NGT intact. BP has been fluctuating. Pt making urine. Objective - Results Result Diagrams: 12/19/17 06:30 12/19/17 06:30 Recent Labs: Laboratory Last Values WBC 10.8 Th/cmm (4.8-10.8) 12/19/17 06:30 RBC 2.07 Mil/cmm (3.80-5.10) L 12/19/17 06:30 Hgb 6.7 gm/dL (12-16) L* 12/19/17 06:30 Hct 19.1 % (41.0-60) L* 12/19/17 06:30 MCV 92.2 fl (81-100) 12/19/17 06:30 MCH 32.2 pg (27.0-31.0) H 12/19/17 06:30 MCHC Differential 34.9 pg (28.0-36.0) 12/19/17 06:30 RDW 14.9 % (11.5-20.0) 12/19/17 06:30 Plt Count 57 Th/cmm (150-400) L 12/19/17 06:30 MPV 7.5 fl 12/19/17 06:30 Neutrophils % 79.2 % (40.0-80.0) 12/17/17 17:22 Band Neutrophils % 1 % (0-10) 12/19/17 06:30 Lymphocytes % 12.0 % (20.0-50.0) L 12/17/17 17:22 Monocytes % 8.3 % (2.0-10.0) 12/17/17 17:22 Eosinophils % 0.2 % (0.0-5.0) 12/17/17 17:22 Basophils % 0.3 % (0.0-2.0) 12/17/17 17:22 Neutrophils (Manual) 89 % (40-80) H 12/19/17 06:30 Lymphocytes 8 % (20-50) L 12/19/17 06:30 Monocytes 2 % (2-10) 12/19/17 06:30 Eosinophils 0 % (0-5) 12/19/17 06:30 Basophils 0 % (0-3) 12/19/17 06:30 Hypochromia 1+ 12/19/17 06:30 Platelet Estimate DECREASED PLATELETS (NORMAL) 12/19/17 06:30 PT 40.8 SECONDS (9.5-11.5) H 12/19/17 06:30 INR 3.66 (0.5-1.4) H 12/19/17 06:30 PTT (Actin FS) 37.8 SECONDS (26.0-38.0) 12/17/17 17:22 Sodium 147 mEq/L (136-145) H 12/19/17 06:30 Potassium 2.0 mEq/L (3.5-5.1) L* D 12/19/17 06:30 Chloride 116 mEq/L (98-107) H 12/19/17 06:30 Carbon Dioxide 21.5 mEq/L (21.0-31.0) 12/19/17 06:30 Anion Gap 11.5 (7.0-16.0) 12/19/17 06:30 BUN 71 mg/dL (7-25) H 12/19/17 06:30 Creatinine 1.7 mg/dL (0.6-1.2) H 12/19/17 06:30 Est GFR ( Amer) 39.3 ml/min (>90) 12/19/17 06:30 Est GFR (Non-Af Amer) 32.5 ml/min 12/19/17 06:30 BUN/Creatinine Ratio 41.8 12/19/17 06:30 Glucose 313 mg/dL (70-105) H 12/19/17 06:30 POC Glucose 206 MG/DL (70 - 105) H 12/19/17 05:07 Hemoglobin A1c % 4.6 % (4.0-6.0) 12/18/17 03:33 Whole Bld Lactic Acid 6.20 mmol/L (0.60-1.99) H* 12/18/17 16:40 Calcium 7.4 mg/dL (8.6-10.3) L 12/19/17 06:30 Magnesium 3.3 mg/dL (1.9-2.7) H 12/17/17 17:22 Total Bilirubin 2.8 mg/dL (0.3-1.0) H 12/19/17 06:30 Direct Bilirubin 1.82 mg/dL (0.0-0.2) H 12/19/17 06:30 AST 812 U/L (13-39) H 12/19/17 06:30 ALT 270 U/L (7-52) H 12/19/17 06:30 Alkaline Phosphatase 71 U/L (34-104) 12/19/17 06:30 Ammonia 64 umol/L (16-53) H 12/17/17 17:22 Creatine Kinase 144 U/L (30-223) 12/18/17 16:50 Troponin I 0.19 ng/mL (0.01-0.05) H* 12/17/17 17:22 B-Natriuretic Peptide 40.8 pg/mL (5.0-100.0) 12/17/17 17:22 Total Protein 3.8 gm/dL (6.0-8.3) L 12/19/17 06:30 Albumin < 1.5 gm/dL (3.7-5.3) L 12/19/17 06:30 Globulin 2.3 gm/dL 12/19/17 06:30 Albumin/Globulin Ratio 0.7 (1.0-1.8) L 12/19/17 06:30 Triglycerides 85 mg/dL (<150) 12/17/17 17:22 Cholesterol 71 mg/dL (<200) 12/17/17 17:22 LDL Cholesterol Direct 53 mg/dL (75-193) L 12/17/17 17:22 HDL Cholesterol 4 mg/dL (23-92) L 12/17/17 17:22 Amylase 14 U/L (29-103) L 12/17/17 17:22 Lipase 22 U/L (11-82) 12/17/17 17:22 Serum , Qual NEGATIVE (NEGATIVE) 12/17/17 17:22 Urine Source SO PORT 12/17/17 19:50 Urine Color YELLOW 12/17/17 19:50 Urine Clarity CLOUDY (CLEAR) H 12/17/17 19:50 Urine pH 5.0 (4.6 - 8.0) 12/17/17 19:50 Ur Specific [place] 1.025 (1.005-1.030) 12/17/17 19:50 Urine Protein NEGATIVE mg/dL (NEGATIVE) 12/17/17 19:50 Urine Glucose (UA) NEGATIVE mg/dL (NEGATIVE) 12/17/17 19:50 Urine Ketones NEGATIVE mg/dL (NEGATIVE) 12/17/17 19:50 Urine Blood TRACE (NEGATIVE) 12/17/17 19:50 Urine Nitrate NEGATIVE (NEGATIVE) 12/17/17 19:50 Urine Bilirubin NEGATIVE (NEGATIVE) 12/17/17 19:50 Urine Urobilinogen 0.2 E.U./dL (0.2 - 1.0) 12/17/17 19:50 Ur Leukocyte Esterase MODERATE (NEGATIVE) H 12/17/17 19:50 Urine RBC 10-25 /hpf (0-5) H 12/17/17 19:50 Urine WBC 6-10 /hpf (0-5) H 12/17/17 19:50 Ur Epithelial Cells OCCASIONAL /lpf (FEW) 12/17/17 19:50 Calcium Oxalate Crystal FEW /hpf 12/17/17 19:50 Amorphous Sediment FEW URATES (NONE SEEN) 12/17/17 19:50 Urine Bacteria MANY /hpf (NONE SEEN) H 12/17/17 19:50 Random Vancomycin 14.0 ug/mL (5.0-40.0) 12/19/17 06:30 Acetaminophen < 10.0 ug/mL (10.0-30.0) L 12/19/17 06:30 HIV 1&2 Antibody Screen NEGATIVE (NEG) 12/19/17 06:30 Blood Type AB POSITIVE 12/18/17 10:20 Antibody Screen NEGATIVE 12/18/17 10:20 Crossmatch See Detail 12/18/17 10:20 - Physical Exam Vitals and I&O: Vital Signs Temp 97.6 F 12/19/17 04:00 Pulse 108 12/19/17 06:25 Resp 13 12/19/17 06:25 BP 102/45 12/19/17 06:25 Pulse Ox 100 12/19/17 06:25 Intake & Output 12/18/17 12/19/17 12/19/17 18:59 06:59 18:59 Intake Total 250 5366.667 1101 Output Total 350 350 Balance -100 5016.667 1101 Weight (lbs) 48.081 kg 56.841 kg Intake: Intake, IV Amount 4467.013 3968 D5-0.9%Ns 1,000 ml @ 125 1366.667 mls/hr IV .Q8H [facility] Rx#: [id number] Sodium Chloride 0.9% 1, 1000 000 ml @ Wide Open IV . Q0M [facility] Rx#:[id number] Oral 4000 Blood Product 250 Output: Urine 350 350 Stool 0 Other: # Bowel Movements 4 Weight Source Bedscale Bedscale Active Medications: Current Medications Acetaminophen (Tylenol) 650 mg PO Q6H PRN PRN Reason: HEADACHE/TEMP ABOVE 100F Stop: 02/15/18 19:43 Dextrose/Sodium Chloride (D5-0.9%Ns) 1,000 mls @ 125 mls/hr IV .Q8H [facility] Stop: 02/15/18 19:44 Last Infusion: 12/19/17 06:31 Dose: 125 mls/hr Magnesium Sulfate (Magnesium Sulfate Premix) 2 gm in 50 mls @ 25 mls/hr IV DAILY PRN PRN Reason: Magnesium level less than 1.6 Stop: 02/15/18 19:43 Potassium Chloride (Potassium Chloride) 20 meq in 100 mls @ 50 mls/hr IV Q2H [facility] Stop: 12/19/17 12:03 Insulin Aspart (Novolog Insulin Sliding Scale) 0 units SUBQ Q6H [facility] PRN Reason: Protocol Stop: 02/16/18 11:59 Last Admin: 12/19/17 05:18 Dose: 6 units Lorazepam (Ativan) 1 mg IVP Q4HR PRN; Protocol PRN Reason: Anxiety Stop: 02/15/18 19:43 Magnesium Oxide (Mag-Oxide) 400 mg PO BID PRN PRN Reason: Mg less than 1.9 Stop: 02/15/18 19:43 Miscellaneous (Vancomycin Iv Per Pharmacy) 1 ea MC PRN PRN PRN Reason: PROTOCOL Stop: 02/15/18 19:42 Morphine Sulfate (Morphine) 1 mg IVP Q4HR PRN PRN Reason: Severe Pain Stop: 02/15/18 19:43 Last Admin: 12/18/17 23:33 Dose: 1 mg Ondansetron HCl (Zofran) 4 mg IVP Q6H PRN PRN Reason: Nausea / Vomiting Stop: 02/15/18 19:43 Pantoprazole Sodium (Protonix) 40 mg IVP Q12H [facility] Stop: 02/16/18 06:59 Last Admin: 12/19/17 06:37 Dose: 40 mg Potassium Chloride (Klor-Con) 40 meq PO DAILY PRN PRN Reason: k level less than 3.5 Stop: 02/15/18 19:43 Sodium Bicarbonate (Sodium Bicarbonate) 650 mg PO TID [facility] PRN Reason: Protocol Stop: 02/16/18 13:59 Last Admin: 12/18/17 21:16 Dose: 650 mg Zolpidem Tartrate (Ambien) 10 mg PO HS PRN PRN Reason: Insomnia Stop: 02/15/18 19:43 Last Admin: 12/18/17 01:49 Dose: 10 mg General: Mild distress HEENT: Atraumatic, Other (no discharge) Neck: Supple, no JVD, no Thyromegaly Cardiovascular: Regular rate, Normal S1, Normal S2 Lungs: Other (has bl rales and congestion) Abdomen: Soft, no Tender Extremities: Edema, no Tender Neurological: no Normal gait, no Normal speech, no Strength at 5/5 X4 ext, no Normal tone Skin: no Rash Psych/Mental Status: Other (no psychosis) - Procedures Procedures: Procedures Procedure Code Date BLOOD TRANSFUSION SERVICE 52612 12/17/17 TRANSFUSE NONAUT RED BLOOD CELLS IN PERIPH VEIN, PERC 61103P3 12/17/17 Assessment/Plan - Problem List Patient Problems: All Active Problems BLOOD IN STOOL (Acute) - Assessment Assessment: Septic shock Sepsis Asp PNA Severe anemia due to GI bleed/hemorrhage Pulm HTN Liver cirrhosis Hep C Sz disorder ME L4-L5 spinal stenosis Coagulopathy due to liver fail Transaminitis due to Hep C and liver cirrhosis Sev malnut Sev Hypokalemia Hyponatremia DM-OOC T8 vertebral body fx - Plan Plan: Pt holds a poor prognosis. 2 units PRBCs to be transfused today on 12/19/17. CT abd pelvis shows multiple issues. GI, Pulm, ID, Cardio, Nephro have been consulted. Poor prognosis. Pt continues to have bright red blood per rectum. 12/19/17: 2 units PRBCs transfusion. No drips. Colonoscopy by Dr. Sourav perrin. On fsbs and riss. Add Levimir. Pain control. FU on cbc and chem 7. 2 K riders due to K being 2. Nutritional Asmnt/Malnutr-PDOC - Dietary Evaluation Malnutrition Findings (Please click <Entered> for more info): Nutritional Asmnt/Malnutrition Start: 12/18/17 15: 09 Text: Status: Complete Freq: Document 12/18/17 15:09 TATY (Rec: 12/18/17 15:27 [email or web address] Nutritional Asmnt/Malnutrition Patient General Information Nutritional Screening High Risk Diagnosis GI bleed, sepsis, hyponatremia , hyperkalemia Pertinent Medical Hx/Surgical Hx pulmonary hypertension, liver cirrhosis, hep C, sezirue, lumbar spinal stenosis Subjective Information Consult received for gluteal sulcus moisture lesion. Per H& P, pt refused to eat for few days before admission. Pt seen lying in bed at time of visit , awake, nonverbal, note folowing commands. RN was busy with pt. glucose 19 at admission noted. Pt has NGtube noted. Current Diet Order/ Nutrition Support NPO Pertinent Medications D5-0.9%ns, novolog, protonix, K phos Pertinent Labs 12/18 Na 138, K 3.3, Cl 110, BUN 81, Cr 2.4, glucose 762, POC 228-287 12/17 Na 130, K 6.2, Cl 92, BUN 107, Cr 3.6, glucose 19, POC 77-168 Nutritional Hx/Data Height 1.65 m Height (Calculated Centimeters) 165.1 Current Weight (lbs) 48.353 kg Weight (Calculated Kilograms) 48.4 Weight (Calculated Grams) 47460.9 [place] Body Weight 130 Body Mass Index (BMI) 17.7 Weight Status Underweight GI Symptoms GI Symptoms None Last BM no record Skin Integrity/Comment: loose, wound Naveen 14 Current %PO Negligible < 25% Estimated Nutritional Goals BEE in Kcals: Using Current wt Calories/Kcals/Kg 30-35 Kcals Calculated 3352-9174 Protein: Using Current wt Protein g/k.2-1.4 monitor renal labs Protein Calculated 57-80 Fluid: ml per MD Nutritional Problem 1. Problem Problem altered nutrition related labs Etiology renal dysfunction, endocrine dysfunction Signs/Symptoms: BUN 81, Cr 2.4, glucose 762, POC 228-287 Intervention/Recommendation Comments 1. Monitor NPO status. If TF needed, RD availale for TF consult. 2. Monitor wt, labs and skin integrity 3. F/U as high risk in 2 days, 12/20 Expected Outcomes/Goals Expected Outcomes/Goals 1. Pt to meet at least 75% of nutritional needs in 2-3 days. 2. Wt stability, skin to remain intact, labs to approach WNL.
--- NOTE | 2017-12-19 08:14 | Diagnostic Imaging Report ---
CHEST X-RAY: AP view INDICATION: Shortness of breath COMPARISON: 12/17/2018 FINDINGS: NG tube is in place with tip in the stomach. There is mild elevation of left hemidiaphragm. Left effusion is seen left basal infiltrates. Heart size is borderline prominent. IMPRESSION: Small to moderate left effusion and left basilar infiltrates.
[2017-12-19] MEDS: KCL 20mEq/100mL Premix 20 MEQ/100 ML PIGGYBACK IV SCH ×2 (08:15→10:43)
[2017-12-19 13:50] LABS: ANION GAP 11.4 (7.0-16.0); CALCIUM SERUM 7.1 mg/dL (8.6-10.3); CARBON DIOXIDE 19.2 mEq/L (21.0-31.0); CREATININE - SERUM 1.5 mg/dL (0.6-1.2); GFR AFRICAN-AMERICAN 45.4 ml/min (>90); GFR NON AFRICAN-AMERICAN 37.5 ml/min
[2017-12-19 13:52] LABS: POTASSIUM SERUM 2.6 mEq/L (3.5-5.1)
--- NOTE | 2017-12-19 16:24 | Consultation ---
DATE OF CONSULTATION: 12/18/2017 Thank you very much, Dr. Tinoco, for this consultation. HISTORY OF PRESENT ILLNESS: This is a 62-year-old female with history of hepatitis C, lumbar stenosis, pulmonary hypertension, liver cirrhosis, who apparently was not eating well recently and presents with weakness, hypotension and tachycardia, was found to be severely dehydrated and anemic. The patient was started on IV fluids. Blood transfusion is in progress. The patient was admitted for further treatment and management. The patient is unable to give any meaningful history, I do not know if she had any history of dementia or not, not in acute distress. PHYSICAL EXAMINATION: VITAL SIGNS: Temperature 97.0, pulse 110, respirations are 15, blood pressure , saturation 100%. HEENT: Atraumatic, normocephalic. Pupils are reactive to light and accommodation. Ears, nose, and throat are normal. NECK: Supple. No JVD. CHEST: There is fair air entry, few rhonchi in the bases. HEART: Regular rate and rhythm. ABDOMEN: Soft and nontender. EXTREMITIES: No edema. LABORATORY DATA AND DIAGNOSTIC STUDIES: WBC is 14.2, hemoglobin 7.0, hematocrit 20.5, platelets 79. Sodium 138, potassium 3.3, BUN is 81, creatinine 2.4. Lactic acid 6.6, down from 8.4. The chest x-ray, left lower lobe infiltrate. IMPRESSION: 1. A 62-year-old female with respiratory failure. 2. Pneumonia. 3. Renal failure. 4. Urinary tract infection. 5. Sepsis. PLAN: 1. IV antibiotics. 2. IV fluids. 3. Nebulizer treatment. 4. . 5. Follow up chest x-ray. We will follow the patient with you. Thank you very much for this consultation. JOB# [id number]
[2017-12-19] MEDS ORDERED: Sodium Bicarbonate 8.4% 50mEq PFS IVP ONE (17:03)
--- NOTE | 2017-12-19 17:03 | General Progress Note ---
Subjective - Review of Systems Service Date: 12/19/17 Events since last encounter: continued to have rectal bleeding. was given ffp 2 units. underwent EGD. desaturated during colonoscopy. Given K supplementation aggressively for K 2.0 abg showing mixed resp and metabolic acidosis. PCO2 66, pH 7.04, serum bicarb on ABG 13 Given 1 ampule bicarbonate. Intubated. uop good Subjective: as above Objective - Results Result Diagrams: 12/19/17 06:30 12/19/17 13:30 Recent Labs: Laboratory Last Values WBC 10.8 Th/cmm (4.8-10.8) 12/19/17 06:30 RBC 2.07 Mil/cmm (3.80-5.10) L 12/19/17 06:30 Hgb 6.7 gm/dL (12-16) L* 12/19/17 06:30 Hct 19.1 % (41.0-60) L* 12/19/17 06:30 MCV 92.2 fl (81-100) 12/19/17 06:30 MCH 32.2 pg (27.0-31.0) H 12/19/17 06:30 MCHC Differential 34.9 pg (28.0-36.0) 12/19/17 06:30 RDW 14.9 % (11.5-20.0) 12/19/17 06:30 Plt Count 57 Th/cmm (150-400) L 12/19/17 06:30 MPV 7.5 fl 12/19/17 06:30 Neutrophils % 79.2 % (40.0-80.0) 12/17/17 17:22 Band Neutrophils % 1 % (0-10) 12/19/17 06:30 Lymphocytes % 12.0 % (20.0-50.0) L 12/17/17 17:22 Monocytes % 8.3 % (2.0-10.0) 12/17/17 17:22 Eosinophils % 0.2 % (0.0-5.0) 12/17/17 17:22 Basophils % 0.3 % (0.0-2.0) 12/17/17 17:22 Neutrophils (Manual) 89 % (40-80) H 12/19/17 06:30 Lymphocytes 8 % (20-50) L 12/19/17 06:30 Monocytes 2 % (2-10) 12/19/17 06:30 Eosinophils 0 % (0-5) 12/19/17 06:30 Basophils 0 % (0-3) 12/19/17 06:30 Hypochromia 1+ 12/19/17 06:30 Platelet Estimate DECREASED PLATELETS (NORMAL) 12/19/17 06:30 PT 40.8 SECONDS (9.5-11.5) H 12/19/17 06:30 INR 3.66 (0.5-1.4) H 12/19/17 06:30 PTT (Actin FS) 37.8 SECONDS (26.0-38.0) 12/17/17 17:22 Sodium 147 mEq/L (136-145) H 12/19/17 13:30 Potassium 2.6 mEq/L (3.5-5.1) L* 12/19/17 13:30 Chloride 119 mEq/L (98-107) H 12/19/17 13:30 Carbon Dioxide 19.2 mEq/L (21.0-31.0) L 12/19/17 13:30 Anion Gap 11.4 (7.0-16.0) 12/19/17 13:30 BUN 67 mg/dL (7-25) H 12/19/17 13:30 Creatinine 1.5 mg/dL (0.6-1.2) H 12/19/17 13:30 Est GFR ( Amer) 45.4 ml/min (>90) 12/19/17 13:30 Est GFR (Non-Af Amer) 37.5 ml/min 12/19/17 13:30 BUN/Creatinine Ratio 44.7 12/19/17 13:30 Glucose 281 mg/dL (70-105) H 12/19/17 13:30 POC Glucose 229 MG/DL (70 - 105) H 12/19/17 12:11 Hemoglobin A1c % 4.6 % (4.0-6.0) 12/18/17 03:33 Whole Bld Lactic Acid 6.20 mmol/L (0.60-1.99) H* 12/18/17 16:40 Calcium 7.1 mg/dL (8.6-10.3) L 12/19/17 13:30 Magnesium 3.3 mg/dL (1.9-2.7) H 12/17/17 17:22 Total Bilirubin 2.8 mg/dL (0.3-1.0) H 12/19/17 06:30 Direct Bilirubin 1.82 mg/dL (0.0-0.2) H 12/19/17 06:30 AST 812 U/L (13-39) H 12/19/17 06:30 ALT 270 U/L (7-52) H 12/19/17 06:30 Alkaline Phosphatase 71 U/L (34-104) 12/19/17 06:30 Ammonia 64 umol/L (16-53) H 12/17/17 17:22 Creatine Kinase 144 U/L (30-223) 12/18/17 16:50 Troponin I 0.19 ng/mL (0.01-0.05) H* 12/17/17 17:22 B-Natriuretic Peptide 40.8 pg/mL (5.0-100.0) 12/17/17 17:22 Total Protein 3.8 gm/dL (6.0-8.3) L 12/19/17 06:30 Albumin < 1.5 gm/dL (3.7-5.3) L 12/19/17 06:30 Globulin 2.3 gm/dL 12/19/17 06:30 Albumin/Globulin Ratio 0.7 (1.0-1.8) L 12/19/17 06:30 Triglycerides 85 mg/dL (<150) 12/17/17 17:22 Cholesterol 71 mg/dL (<200) 12/17/17 17:22 LDL Cholesterol Direct 53 mg/dL (75-193) L 12/17/17 17:22 HDL Cholesterol 4 mg/dL (23-92) L 12/17/17 17:22 Amylase 14 U/L (29-103) L 12/17/17 17:22 Lipase 22 U/L (11-82) 12/17/17 17:22 Serum , Qual NEGATIVE (NEGATIVE) 12/17/17 17:22 Urine Source SO [place] 12/17/17 19:50 Urine Color YELLOW 12/17/17 19:50 Urine Clarity CLOUDY (CLEAR) H 12/17/17 19:50 Urine pH 5.0 (4.6 - 8.0) 12/17/17 19:50 Ur Specific [place] 1.025 (1.005-1.030) 12/17/17 19:50 Urine Protein NEGATIVE mg/dL (NEGATIVE) 12/17/17 19:50 Urine Glucose (UA) NEGATIVE mg/dL (NEGATIVE) 12/17/17 19:50 Urine Ketones NEGATIVE mg/dL (NEGATIVE) 12/17/17 19:50 Urine Blood TRACE (NEGATIVE) 12/17/17 19:50 Urine Nitrate NEGATIVE (NEGATIVE) 12/17/17 19:50 Urine Bilirubin NEGATIVE (NEGATIVE) 12/17/17 19:50 Urine Urobilinogen 0.2 E.U./dL (0.2 - 1.0) 12/17/17 19:50 Ur Leukocyte Esterase MODERATE (NEGATIVE) H 12/17/17 19:50 Urine RBC 10-25 /hpf (0-5) H 12/17/17 19:50 Urine WBC 6-10 /hpf (0-5) H 12/17/17 19:50 Ur Epithelial Cells OCCASIONAL /lpf (FEW) 12/17/17 19:50 Calcium Oxalate Crystal FEW /hpf 12/17/17 19:50 Amorphous Sediment FEW URATES (NONE SEEN) 12/17/17 19:50 Urine Bacteria MANY /hpf (NONE SEEN) H 12/17/17 19:50 Random Vancomycin 14.0 ug/mL (5.0-40.0) 12/19/17 06:30 Acetaminophen < 10.0 ug/mL (10.0-30.0) L 12/19/17 06:30 HIV 1&2 Antibody Screen NEGATIVE (NEG) 12/19/17 06:30 Blood Type AB POSITIVE 12/18/17 10:20 Antibody Screen NEGATIVE 12/18/17 10:20 Crossmatch See Detail 12/18/17 10:20 - Physical Exam Vitals and I&O: Vital Signs Temp 96.8 F 12/19/17 16:00 Pulse 88 12/19/17 16:00 Resp 15 12/19/17 16:00 BP 84/35 12/19/17 16:00 Pulse Ox 100 12/19/17 16:00 Intake & Output 12/18/17 12/19/17 12/19/17 18:59 06:59 18:59 Intake Total 250 5366.667 1451 Output Total 350 350 Balance -100 5016.667 1451 Weight (lbs) 48.081 kg 56.841 kg Intake: Intake, IV Amount 9934.279 9262 D5-0.9%Ns 1,000 ml @ 125 1366.667 mls/hr IV .Q8H [facility] Rx#: [id number] KCL 20mEq/100mL Premix 20 100 meq In 100 ml @ 50 mls/ hr IV Q2H [facility] Rx#: [id number] Sodium Chloride 0.9% 1, 1000 000 ml @ Wide Open IV . Q0M [facility] Rx#:[id number] Vancomycin HCl 1 gm In 250 Sodium Chloride 0.9% 250 ml @ 165 mls/hr IV Q18H [facility] Rx#:[id number] Oral 4000 Blood Product 250 Output: Urine 350 350 Stool 0 Other: # Bowel Movements 4 Stool Characteristics Liquid Bloody Weight Source Bedscale Bedscale Active Medications: Current Medications Acetaminophen (Tylenol) 650 mg PO Q6H PRN PRN Reason: HEADACHE/TEMP ABOVE 100F Stop: 02/15/18 19:43 Albuterol/Ipratropium (Duoneb Neb) 3 ml HHN Q6HRT [facility] Stop: 02/17/18 18:59 Dextrose/Sodium Chloride (D5-0.9%Ns) 1,000 mls @ 125 mls/hr IV .Q8H [facility] Stop: 02/15/18 19:44 Last Infusion: 12/19/17 06:31 Dose: 125 mls/hr Magnesium Sulfate (Magnesium Sulfate Premix) 2 gm in 50 mls @ 25 mls/hr IV DAILY PRN PRN Reason: Magnesium level less than 1.6 Stop: 02/15/18 19:43 Vancomycin HCl 1 gm/ Sodium (Chloride) 250 mls @ 165 mls/hr IV Q18H [facility] Stop: 02/17/18 08:59 Last Infusion: 12/19/17 10:45 Dose: Infused Potassium Chloride 40 meq/Lidocaine HCl 25 mg/ Sodium Chloride 272.5 mls @ 68 mls/hr IV DAILY PRN PRN Reason: k level less than 3.2 Stop: 02/17/18 14:53 Insulin Aspart (Novolog Insulin Sliding Scale) 0 units SUBQ Q6H [facility] PRN Reason: Protocol Stop: 02/16/18 11:59 Last Admin: 12/19/17 12:13 Dose: 6 units Insulin Detemir (Levemir Insulin) 5 units SUBQ HS [facility] PRN Reason: Protocol Stop: 02/17/18 20:59 Lorazepam (Ativan) 1 mg IVP Q4HR PRN; Protocol PRN Reason: Anxiety Stop: 02/15/18 19:43 Magnesium Oxide (Mag-Oxide) 400 mg PO BID PRN PRN Reason: Mg less than 1.9 Stop: 02/15/18 19:43 Miscellaneous (Vancomycin Iv Per Pharmacy) 1 ea MC PRN PRN PRN Reason: PROTOCOL Stop: 02/15/18 19:42 Morphine Sulfate (Morphine) 1 mg IVP Q4HR PRN PRN Reason: Severe Pain Stop: 02/15/18 19:43 Last Admin: 12/18/17 23:33 Dose: 1 mg Ondansetron HCl (Zofran) 4 mg IVP Q6H PRN PRN Reason: Nausea / Vomiting Stop: 02/15/18 19:43 Pantoprazole Sodium (Protonix) 40 mg IVP Q12H [facility] Stop: 02/16/18 06:59 Last Admin: 12/19/17 06:37 Dose: 40 mg Potassium Chloride (Klor-Con) 40 meq PO DAILY PRN PRN Reason: k level less than 3.5 Stop: 02/15/18 19:43 Sodium Bicarbonate (Sodium Bicarbonate) 650 mg PO TID [facility] PRN Reason: Protocol Stop: 02/16/18 13:59 Last Admin: 12/19/17 14:00 Dose: Not Given Zolpidem Tartrate (Ambien) 10 mg PO HS PRN PRN Reason: Insomnia Stop: 02/15/18 19:43 Last Admin: 12/18/17 01:49 Dose: 10 mg General: Other (obtunded, intubated NAD) HEENT: Atraumatic, Other (no discharge) Neck: Supple, no JVD, no Thyromegaly Cardiovascular: Regular rate, Normal S1, Normal S2 Lungs: Other (has bl rales and congestion) Abdomen: Soft, no Tender Extremities: Edema, no Tender Neurological: no Normal gait, no Normal speech, no Strength at 5/5 X4 ext, no Normal tone Skin: no Rash Psych/Mental Status: Other (no psychosis) - Procedures Procedures: Procedures Procedure Code Date BLOOD TRANSFUSION SERVICE 25160 04/18/18 TRANSFUSE NONAUT RED BLOOD CELLS IN PERIPH VEIN, [facility] [id number] 12/17/17 Assessment/Plan - Problem List Patient Problems: All Active Problems BLOOD IN STOOL (Acute) - Assessment Assessment: Acute kidney injury, secondary to volume depletion, non-oliguric w/o indication for STEM SHAPER, improving Septicemia due to UTI Hypokalemia severe Mixed respiratory and metabolic acidosis Anemia acute on chronic GI bleed Liver cirrhosis Acute hypoxic resp failure Coagulopathy - Plan Plan: Continue IV fluids. Will adjust IV fluids given multiple metabolic derangements. Continue to replete K aggressively as indicated Hold diuretics Monitor Hgb. Transfuse prn. GI bleed mgmt per GI Vent support per pulmonary Prognosis guarded Nutritional Asmnt/Malnutr-PDOC - Dietary Evaluation Malnutrition Findings (Please click <Entered> for more info): Nutritional Asmnt/Malnutrition Start: 12/18/17 15: 09 Text: Status: Complete Freq: Document 12/18/17 15:09 TATY (Rec: 12/18/17 15:27 TATY [id number]) Nutritional Asmnt/Malnutrition Patient General Information Nutritional Screening High Risk Diagnosis GI bleed, sepsis, hyponatremia , hyperkalemia Pertinent Medical Hx/Surgical Hx pulmonary hypertension, liver cirrhosis, hep C, sezirue, lumbar spinal stenosis Subjective Information Consult received for gluteal sulcus moisture lesion. Per H& P, pt refused to eat for few days before admission. Pt seen lying in bed at time of visit , awake, nonverbal, note folowing commands. RN was busy with pt. glucose 19 at admission noted. Pt has NGtube noted. Current Diet Order/ Nutrition Support NPO Pertinent Medications D5-0.9%ns, novolog, protonix, K phos Pertinent Labs 12/18 Na 138, K 3.3, Cl 110, BUN 81, Cr 2.4, glucose 762, POC 228-287 12/17 Na 130, K 6.2, Cl 92, BUN 107, Cr 3.6, glucose 19, POC 77-168 Nutritional Hx/Data Height 1.65 m Height (Calculated Centimeters) 165.1 Current Weight (lbs) 48.353 kg Weight (Calculated Kilograms) 48.4 Weight (Calculated Grams) 71834.9 [place] Body Weight 130 Body Mass Index (BMI) 17.7 Weight Status Underweight GI Symptoms GI Symptoms None Last BM no record Skin Integrity/Comment: loose, wound Naveen 14 Current %PO Negligible < 25% Estimated Nutritional Goals BEE in Kcals: Using Current wt Calories/Kcals/Kg 30-35 Kcals Calculated 4095-0651 Protein: Using Current wt Protein g/k.2-1.4 monitor renal labs Protein Calculated 57-80 Fluid: ml per MD Nutritional Problem 1. Problem Problem altered nutrition related labs Etiology renal dysfunction, endocrine dysfunction Signs/Symptoms: BUN 81, Cr 2.4, glucose 762, POC 228-287 Intervention/Recommendation Comments 1. Monitor NPO status. If TF needed, RD availale for TF consult. 2. Monitor wt, labs and skin integrity 3. F/U as high risk in 2 days, 12/20 Expected Outcomes/Goals Expected Outcomes/Goals 1. Pt to meet at least 75% of nutritional needs in 2-3 days. 2. Wt stability, skin to remain intact, labs to approach WNL.
[2017-12-19 17:07] LABS: % EOSINOPHILS 0.1 % (0.0-5.0); % NEUTROPHILS 73.4 % (40.0-80.0)
[2017-12-19 17:15] LABS: % BASOPHILS 0.1 % (0.0-2.0); % LYMPHOCYTES 21.1 % (20.0-50.0); % MONOCYTES 5.3 % (2.0-10.0); LYMPHOCYTE ABSOLUTE 2.8 Th/cmm (1.5-3.0); MEAN CELL VOLUME 89.4 fl (81-100); MEAN CORPUSCULAR HEMOGLOBIN 30.6 pg (27.0-31.0); MEAN CORPUSCULAR HGB CONC 34.2 pg (28.0-36.0); MEAN PLATELET VOLUME 7.6 fl; MONOCYTE ABSOLUTE 0.7 Th/cmm (0.3-1.0); NEUTROPHILE ABSOLUTE 9.9 Th/cmm (1.8-8.0); PLATELET COUNT 36 Th/cmm (150-400); RED BLOOD COUNT 1.77 Mil/cmm (3.80-5.10); RED CELL DISTRIBUTION WIDTH 15.1 % (11.5-20.0)
[2017-12-19] MEDS: Potassium Chloride 40 MEQ, Lidocaine 1% 20mL Vial 25 MG in Sodium Chloride 0.9% 250 ML IV PRN (17:19)
[2017-12-19 17:20] LABS: HEMOGLOBIN 5.4 gm/dL (12-16)
[2017-12-19 17:21] LABS: HEMATOCRIT 15.8 % (41.0-60); WHITE BLOOD COUNT 13.4 Th/cmm (4.8-10.8)
[2017-12-19 17:22] LABS: pH 7.04 (7.35-7.45)
--- NOTE | 2017-12-19 17:58 | Consultation ---
DATE OF CONSULTATION: 12/19/2017 HEMATOLOGY AND ONCOLOGY CONSULTATION REFERRING PHYSICIAN: Dr. Tinoco. REASON FOR CONSULTATION: Coagulopathy, thrombocytopenia, anemia and rectal bleeding. HISTORY OF PRESENT ILLNESS: The patient is a 62-year-old female with history of hepatitis C and liver cirrhosis. The patient has altered mental status and seen in ICU. She is presenting with some bleeding and her hemoglobin has been dropping in the past 3 days. The admission hemoglobin was 9.3 and now 6.7. Her admission platelet count was 123 and now 57. She had 2 units of packed red blood cell transfusion this morning and she is scheduled to have colonoscopy this afternoon. Her INR is also elevated and 2 units of FFP were ordered. PAST MEDICAL HISTORY: Pulmonary hypertension, hepatitis C, liver cirrhosis and seizure disorder. PAST SURGICAL HISTORY: Unknown SOCIAL HISTORY: Nursing facility resident. MEDICATIONS: Reviewed. Current medications are Ativan, magnesium, vancomycin, morphine, Zofran and Protonix. PHYSICAL EXAMINATION: GENERAL: The patient is altered, arousable, on nasal cannula oxygen and nasogastric tube. No peripheral lymphadenopathy. CHEST: Scattered rhonchi. ABDOMEN: Quintanilla catheter. No hematuria. EXTREMITIES: Edema in both lower extremities. LABORATORY AND DIAGNOSTIC DATA: White count 10.8, hemoglobin 6.7, platelet count 57, INR 3.66, creatinine 1.5 and bilirubin 2.8. AST and ALT are elevated. HIV negative. CT scan of the abdomen and pelvis: Large bowel wall thickening, comminuted fracture at T8, distended urinary bladder, anasarca, old left pelvic fracture and osteopenia. ASSESSMENT: Liver cirrhosis secondary to hepatitis with sacral cellulitis, hepatic coagulopathy and chronic thrombocytopenia, which is worsened during the hospital stay. The patient did have an active rectal bleeding and she will need correction of coagulopathy to control bleeding pending the colonoscopy and further diagnosis of the thickening of the colon seen on CT scan. I will also obtain fibrinogen level and if below 100, I will transfuse cryoprecipitate. Monitor the hemoglobin and transfuse as needed and if platelets drop further, transfusion will be given. Overall, condition is critical. Thank you, Dr. Tinoco, for the opportunity to participate in the care of this interesting case with you. [facility]# [id number]
[2017-12-19] MEDS: SODIUM BICARBONATE IV SCH (18:27)
[2017-12-19] MEDS: D5 IV SCH (18:27)
[2017-12-19] MEDS: [UNRECOGNIZED DRUG - OTHER] IV SCH (18:27)
[2017-12-19 18:33] LABS: pH 7.28 (7.35-7.45)
[2017-12-19] MEDS: Albuterol/Ipratropium Neb 3 ML AERS HHN SCH (19:02)
[2017-12-19] MEDS ORDERED: Sodium Bicarbonate 8.4% 50mEq PFS IVP SCH (19:30)
[2017-12-19] MEDS ORDERED: Insulin Detemir 100 units/mL 10mL Vial SUBQ SCH (21:00)
[2017-12-19] MEDS: Chlorhexidine Gluconate 0.12% 15mL Mouthwash MM SCH (21:26)
[2017-12-19] MEDS: Morphine Sulfate 4 mg/mL 1mL Syr IVP PRN (21:26)
[2017-12-20] MEDS: INSULIN ASPART SLIDING SCALE 100 UNITS/ML UNIT SUBQ SCH ×3 (00:30→12:54)
[2017-12-20] MEDS: Albuterol/Ipratropium Neb 3 ML AERS HHN SCH ×3 (01:21→13:08)
[2017-12-20] MEDS: [UNRECOGNIZED DRUG - OTHER] IV SCH (02:46)
[2017-12-20] MEDS: SODIUM BICARBONATE IV SCH (02:46)
[2017-12-20] MEDS: D5 IV SCH (02:46)
--- NOTE | 2017-12-20 04:19 | Operative Report ---
DATE OF SURGERY: 12/19/2017 PROCEDURE: 1. Esophagogastroduodenoscopy with biopsy. 2. Incomplete colonoscopy. PREOPERATIVE DIAGNOSIS: Massive GI bleed and anemia with coagulopathy in the setting of possible liver failure. POSTOPERATIVE DIAGNOSES: 1. Upper endoscopy showing mild esophagitis with nasogastric tube trauma and possible mucosal tear from nasogastric tube insertion; nasogastric tube repositioned; no evidence of esophageal or gastric varices; multiple small punctate gastric antral and body ulcers, status post CLOtest; old blood noted throughout the stomach. 2. Colonoscopy showing mauri blood with clots throughout the visualized portions of the colon; diverticulosis; procedure aborted with scope in transverse colon secondary to oxygen desaturations and hypotension. INDICATIONS: A 62-year-old female with possible chronic liver disease due to hepatitis C with cirrhosis, admitted for weakness, agitation and confusion. She also was noted to have rectal bleeding. The patient had worsening coagulopathy requiring fresh frozen plasma infusion. She also had hypokalemia requiring potassium repletion. She had anemia that required blood transfusions. An upper endoscopy and colonoscopy are being performed emergently for further evaluation of GI bleeding. CONSENT: Informed consent was obtained from the patient's daughter prior to procedure after explanation of risks, benefits, alternatives including but not limited to infection, bleeding, perforation and . SEDATION: Monitored anesthesia care per Dr. Ruiz. DESCRIPTION OF PROCEDURE AND FINDINGS: The procedure took place as an inpatient in the Intensive Care Unit of [facility] on an urgent basis. The patient was kept in a left lateral decubitus position. Adequate sedation was achieved by Dr. Ruiz. Initially, an upper endoscopy was performed followed by colonoscopy. An Olympus diagnostic upper endoscope was advanced via the patient's mouth and into the esophagus. The nasogastric tube was noted to be intact, but a portion of the nasogastric tube was noted passing through the mucosa of the esophagus. There was perhaps a 1 cm segment that appeared to be going through and through the esophageal mucosa. The rest of the stomach was visualized and there was old blood noted throughout the stomach. No obvious esophageal or gastric varices were noted. Multiple small punctate gastric antral and body ulcers were identified. Biopsy was obtained for CLOtest. The pyloric channel and duodenum up to second portion appeared normal. At this point, it was deemed most safe to reposition the nasogastric tube given that it was traversing only the mucosa of the esophagus and not through the wall itself. At this point, the nasogastric tube was removed a bit with tip in the mid esophagus and then after much manipulation with the scope tip, the tip of the nasogastric tube was able to be advanced away from this area of mucosal injury and into the gastric lumen. It was noted to be in satisfactory position. Care was taken to withdraw the scope from the patient. The patient was then repositioned and colonoscopy attempted. Rectal examination revealed normal sphincter tone with no rectal masses. An Olympus pediatric colonoscope was advanced via the patient's anus and into the rectum with ease. It was advanced up to the transverse colon only. Scope advancement was difficult as the bowel preparation was poor due to mauri blood throughout the colon as well as fresh clots noted as well. At this point, with the scope in the mid transverse colon, the patient desaturated down to the 20s. She also had mild hypotension with tachycardia. At this point, it was deemed most safe to abort the procedure. The scope was then rapidly withdrawn. At this point, the patient's clinical status is quite tenuous. She was resuscitated by Dr. Ruiz, the anesthesiologist. Arterial blood gas is being ordered. Dr. Tinoco has been notified as well. RECOMMENDATIONS: 1. Cardiopulmonary resuscitation as per release specialist and per anesthesiologist. 2. Monitor hemoglobin and transfuse as necessary. 3. Monitor platelet count and INR as well. The patient's prognosis is extremely poor with high risk of morbidity and mortality. Continue broad spectrum antibiotics. 4. May need intubation as well. 5. May need abdominal imaging if abdominal distention persists. Thank you, Dr. Brennan Tinoco, for involving us in the care of your patient. If you have any further questions, please call us. JOB# [id number] MTDD
[2017-12-20 05:14] LABS: MEAN CELL VOLUME 90.1 fl (81-100); MEAN CORPUSCULAR HEMOGLOBIN 30.5 pg (27.0-31.0); MEAN CORPUSCULAR HGB CONC 33.9 pg (28.0-36.0); MEAN PLATELET VOLUME 7.7 fl; PLATELET COUNT 62 Th/cmm (150-400); RED CELL DISTRIBUTION WIDTH 14.1 % (11.5-20.0); WHITE BLOOD COUNT 10.9 Th/cmm (4.8-10.8)
[2017-12-20 05:19] LABS: HEMATOCRIT 30.6 % (41.0-60); HEMOGLOBIN 10.4 gm/dL (12-16)
[2017-12-20 05:20] LABS: MANUAL DIFF REQUIRED? YES
[2017-12-20 05:22] LABS: INR 2.01 (0.5-1.4); PROTHROMBIN TIME (TEST) 21.6 SECONDS (9.5-11.5)
[2017-12-20 05:26] LABS: ALB/GLOB RATIO 0.7 (1.0-1.8); ALBUMIN < 1.5 gm/dL (3.7-5.3); ALKALINE PHOSPHATASE 64 U/L (34-104); ANION GAP 17.6 (7.0-16.0); BILIRUBIN,TOTAL 3.3 mg/dL (0.3-1.0); BUN - UREA NITROGEN 57 mg/dL (7-25); CHLORIDE 118 mEq/L (98-107); CREATININE - SERUM 1.6 mg/dL (0.6-1.2); GFR AFRICAN-AMERICAN 42.1 ml/min (>90); GFR NON AFRICAN-AMERICAN 34.8 ml/min; SGOT 432 U/L (13-39); SGPT/ALT 175 U/L (7-52); SODIUM SERUM 151 mEq/L (136-145); TOTAL PROTEIN,SERUM 3.6 gm/dL (6.0-8.3)
[2017-12-20 05:31] LABS: GLUCOSE 152 mg/dL (70-105); POTASSIUM SERUM 2.6 mEq/L (3.5-5.1)
[2017-12-20 06:26] LABS: BAND NEUTROPHILE 3 % (0-10); LYMPHOCYTE 5 % (20-50); MONOCYTE 2 % (2-10); NEUTROPHILS 90 % (40-80); PLATELET ESTIMATE DECREASED PLATELETS (NORMAL); TOTAL CELLS COUNTED 100
[2017-12-20] MEDS: Chlorhexidine Gluconate 0.12% 15mL Mouthwash MM SCH (08:09)
[2017-12-20] MEDS: Potassium Chloride 40 MEQ, Lidocaine 1% 20mL Vial 25 MG in Sodium Chloride 0.9% 250 ML IV PRN (09:00)
--- NOTE | 2017-12-20 09:02 | Diagnostic Imaging Report ---
KUB single view HISTORY: Distention, status post colonoscopy. COMPARISON: CT abdomen and pelvis on 12/18/2017 FINDINGS: NG tube is visualized coiled in the stomach with tip along the fundal portion. Generalized gaseous filled loops of bowel are noted. A small left effusion is noted. IMPRESSION: Generalized gaseous distention with some bowel suggestive of an ileus. NG tube curled in the stomach with tip probably along the fundal portion. Small left effusion.
--- NOTE | 2017-12-20 09:02 | GI Progress Note ---
Subjective - Review of Systems Service Date: 12/20/17 Subjective: Underwent EGD and attempted colonoscopy yesterday. Had desaturation during colonoscopy and thus procedure was aborted. KUB today shows no free air. Hgb is better this morning, she remains intubated Objective - Results Result Diagrams: 12/20/17 04:10 12/20/17 04:10 Recent Labs: Laboratory Last Values WBC 10.9 Th/cmm (4.8-10.8) H 12/20/17 04:10 RBC 3.40 Mil/cmm (3.80-5.10) L 12/20/17 04:10 Hgb 10.4 gm/dL (12-16) L D 12/20/17 04:10 Hct 30.6 % (41.0-60) L D 12/20/17 04:10 MCV 90.1 fl (81-100) 12/20/17 04:10 MCH 30.5 pg (27.0-31.0) 12/20/17 04:10 MCHC Differential 33.9 pg (28.0-36.0) 12/20/17 04:10 RDW 14.1 % (11.5-20.0) 12/20/17 04:10 Plt Count 62 Th/cmm (150-400) L 12/20/17 04:10 MPV 7.7 fl 12/20/17 04:10 Neutrophils % 73.4 % (40.0-80.0) 12/19/17 17:02 Band Neutrophils % 3 % (0-10) 12/20/17 04:10 Lymphocytes % 21.1 % (20.0-50.0) 12/19/17 17:02 Monocytes % 5.3 % (2.0-10.0) 12/19/17 17:02 Eosinophils % 0.1 % (0.0-5.0) 12/19/17 17:02 Basophils % 0.1 % (0.0-2.0) 12/19/17 17:02 Neutrophils (Manual) 90 % (40-80) H 12/20/17 04:10 Lymphocytes 5 % (20-50) L 12/20/17 04:10 Monocytes 2 % (2-10) 12/20/17 04:10 Eosinophils 0 % (0-5) 12/19/17 06:30 Basophils 0 % (0-3) 12/19/17 06:30 Hypochromia 1+ 12/19/17 06:30 Platelet Estimate DECREASED PLATELETS (NORMAL) 12/20/17 04:10 PT 21.6 SECONDS (9.5-11.5) H 12/20/17 04:10 INR 2.01 (0.5-1.4) H 12/20/17 04:10 PTT (Actin FS) 37.8 SECONDS (26.0-38.0) 12/17/17 17:22 Fibrinogen 92.0 mg/dL (200.0-400.0) L* 12/20/17 04:10 Specimen Source Arterial 12/19/17 18:10 Sample Site LEFT BRACHIAL 12/19/17 18:10 pH 7.28 (7.35-7.45) L 12/19/17 18:10 pCO2 38.0 mmHg (35.0-45.0) 12/19/17 18:10 pO2 90.0 mmHg (80.0-100.0) 12/19/17 18:10 HCO3 18.5 mEq/L (20.0-26.0) L 12/19/17 18:10 Base Excess -8.2 mEq/L (-3.0-3.0) L 12/19/17 18:10 O2 Saturation 96.0 % (92.0-100.0) 12/19/17 18:10 Selvin Test NA 12/19/17 18:10 Vent Rate 24 12/19/17 18:10 Inspired O2 100 12/19/17 18:10 Tidal Volume 500 12/19/17 18:10 PEEP 5 12/19/17 18:10 Pressure (ins/psv/peep) NA 12/19/17 18:10 Critical Value HSTEHNO 12/19/17 18:10 Sodium 151 mEq/L (136-145) H 12/20/17 04:10 Potassium 2.6 mEq/L (3.5-5.1) L* 12/20/17 04:10 Chloride 118 mEq/L (98-107) H 12/20/17 04:10 Carbon Dioxide 18.0 mEq/L (21.0-31.0) L 12/20/17 04:10 Anion Gap 17.6 (7.0-16.0) H 12/20/17 04:10 BUN 57 mg/dL (7-25) H 12/20/17 04:10 Creatinine 1.6 mg/dL (0.6-1.2) H 12/20/17 04:10 Est GFR ( Amer) 42.1 ml/min (>90) 12/20/17 04:10 Est GFR (Non-Af Amer) 34.8 ml/min 12/20/17 04:10 BUN/Creatinine Ratio 35.6 12/20/17 04:10 Glucose 152 mg/dL (70-105) H D 12/20/17 04:10 POC Glucose 125 MG/DL (70 - 105) H 12/20/17 05:26 Hemoglobin A1c % 4.6 % (4.0-6.0) 12/18/17 03:33 Whole Bld Lactic Acid 6.20 mmol/L (0.60-1.99) H* 12/18/17 16:40 Calcium 7.0 mg/dL (8.6-10.3) L 12/20/17 04:10 Magnesium 1.7 mg/dL (1.9-2.7) L 12/20/17 04:10 Total Bilirubin 3.3 mg/dL (0.3-1.0) H 12/20/17 04:10 Direct Bilirubin 1.82 mg/dL (0.0-0.2) H 12/19/17 06:30 AST 432 U/L (13-39) H 12/20/17 04:10 ALT 175 U/L (7-52) H 12/20/17 04:10 Alkaline Phosphatase 64 U/L (34-104) 12/20/17 04:10 Ammonia 64 umol/L (16-53) H 12/17/17 17:22 Creatine Kinase 144 U/L (30-223) 12/18/17 16:50 Troponin I 0.19 ng/mL (0.01-0.05) H* 12/17/17 17:22 B-Natriuretic Peptide 40.8 pg/mL (5.0-100.0) 12/17/17 17:22 Total Protein 3.6 gm/dL (6.0-8.3) L 12/20/17 04:10 Albumin < 1.5 gm/dL (3.7-5.3) L 12/20/17 04:10 Globulin 2.1 gm/dL 12/20/17 04:10 Albumin/Globulin Ratio 0.7 (1.0-1.8) L 12/20/17 04:10 Triglycerides 85 mg/dL (<150) 12/17/17 17:22 Cholesterol 71 mg/dL (<200) 12/17/17 17:22 LDL Cholesterol Direct 53 mg/dL (75-193) L 12/17/17 17:22 HDL Cholesterol 4 mg/dL (23-92) L 12/17/17 17:22 Amylase 14 U/L (29-103) L 12/17/17 17:22 Lipase 22 U/L (11-82) 12/17/17 17:22 Serum , Qual NEGATIVE (NEGATIVE) 12/17/17 17:22 Urine Source SO PORT 12/17/17 19:50 Urine Color YELLOW 12/17/17 19:50 Urine Clarity CLOUDY (CLEAR) H 12/17/17 19:50 Urine pH 5.0 (4.6 - 8.0) 12/17/17 19:50 Ur Specific [place] 1.025 (1.005-1.030) 12/17/17 19:50 Urine Protein NEGATIVE mg/dL (NEGATIVE) 12/17/17 19:50 Urine Glucose (UA) NEGATIVE mg/dL (NEGATIVE) 12/17/17 19:50 Urine Ketones NEGATIVE mg/dL (NEGATIVE) 12/17/17 19:50 Urine Blood TRACE (NEGATIVE) 12/17/17 19:50 Urine Nitrate NEGATIVE (NEGATIVE) 12/17/17 19:50 Urine Bilirubin NEGATIVE (NEGATIVE) 12/17/17 19:50 Urine Urobilinogen 0.2 E.U./dL (0.2 - 1.0) 12/17/17 19:50 Ur Leukocyte Esterase MODERATE (NEGATIVE) H 12/17/17 19:50 Urine RBC 10-25 /hpf (0-5) H 12/17/17 19:50 Urine WBC 6-10 /hpf (0-5) H 12/17/17 19:50 Ur Epithelial Cells OCCASIONAL /lpf (FEW) 12/17/17 19:50 Calcium Oxalate Crystal FEW /hpf 12/17/17 19:50 Amorphous Sediment FEW URATES (NONE SEEN) 12/17/17 19:50 Urine Bacteria MANY /hpf (NONE SEEN) H 12/17/17 19:50 Random Vancomycin 14.0 ug/mL (5.0-40.0) 12/19/17 06:30 Acetaminophen < 10.0 ug/mL (10.0-30.0) L 12/19/17 06:30 HIV 1&2 Antibody Screen NEGATIVE (NEG) 12/19/17 06:30 Blood Type AB POSITIVE 12/19/17 10:26 Antibody Screen NEGATIVE 12/18/17 10:20 Crossmatch See Detail 12/18/17 10:20 - Physical Exam Vitals and I&O: Vital Signs Temp 97.8 F 12/20/17 08:00 Pulse 114 12/20/17 08:00 Resp 15 12/20/17 08:00 BP 97/38 12/20/17 08:09 Pulse Ox 100 12/20/17 08:00 Intake & Output 12/19/17 12/20/17 12/20/17 18:59 06:59 18:59 Intake Total 2651 3080.833 Output Total 250 60 Balance 2401 3020.833 Weight (lbs) 56.699 kg 68.719 kg Intake: Intake, IV Amount 1551 1930.833 KCL 20mEq/100mL Premix 20 100 meq In 100 ml @ 50 mls/ hr IV Q2H [facility] Rx#: [id number] Potassium Chloride 40 meq 272.5 Lidocaine 1% 20mL Vial 25 mg In Sodium Chloride 0.9% 250 ml @ 68 mls/hr IV DAILY PRN Rx#: [id number] Sodium Bicarbonate 8.4% 1408.333 50 meq In D5-0.45NS 1,000 ml @ 125 mls/hr IV . Q8H24M [facility] Rx#:[id number] Sodium Chloride 0.9% 1, 1000 000 ml @ Wide Open IV . Q0M [facility] Rx#:[id number] Vancomycin HCl 1 gm In 250 250 Sodium Chloride 0.9% 250 ml @ 165 mls/hr IV Q18H [facility] Rx#:[id number] Blood Product 1100 1150 Output: Urine 250 60 Stool 0 Other: # Bowel Movements 2 Stool Characteristics Liquid Bloody Weight Source Bedscale Bedscale Active Medications: Current Medications Acetaminophen (Tylenol) 650 mg PO Q6H PRN PRN Reason: HEADACHE/TEMP ABOVE 100F Stop: 02/15/18 19:43 Albuterol/Ipratropium (Duoneb Neb) 3 ml HHN Q6HRT [facility] Stop: 02/17/18 18:59 Last Admin: 12/20/17 07:23 Dose: 3 ml Chlorhexidine Gluconate (Peridex) 15 ml MM 0800,2000 [facility] Stop: 02/17/18 19:59 Last Admin: 12/20/17 08:09 Dose: 15 ml Magnesium Sulfate (Magnesium Sulfate Premix) 2 gm in 50 mls @ 25 mls/hr IV DAILY PRN PRN Reason: Magnesium level less than 1.6 Stop: 02/15/18 19:43 Vancomycin HCl 1 gm/ Sodium (Chloride) 250 mls @ 165 mls/hr IV Q18H [facility] Stop: 02/17/18 08:59 Last Infusion: 12/20/17 06:22 Dose: Infused Potassium Chloride 40 meq/Lidocaine HCl 25 mg/ Sodium Chloride 272.5 mls @ 68 mls/hr IV DAILY PRN PRN Reason: k level less than 3.2 Stop: 02/17/18 14:53 Last Infusion: 12/20/17 06:24 Dose: Infused Sodium Bicarbonate 50 meq/ (Dextrose/Sodium Chloride) 1,050 mls @ 125 mls/hr IV .Q8H24M [facility] Stop: 12/20/17 18:26 Last Infusion: 12/20/17 05:43 Dose: 125 mls/hr Insulin Aspart (Novolog Insulin Sliding Scale) 0 units SUBQ Q6H [facility] PRN Reason: Protocol Stop: 02/16/18 11:59 Last Admin: 12/20/17 05:39 Dose: Not Given Insulin Detemir (Levemir Insulin) 5 units SUBQ HS [facility] PRN Reason: Protocol Stop: 02/17/18 20:59 Last Admin: 12/19/17 21:24 Dose: 5 units Lorazepam (Ativan) 1 mg IVP Q4HR PRN; Protocol PRN Reason: Anxiety Stop: 02/15/18 19:43 Magnesium Oxide (Mag-Oxide) 400 mg PO BID PRN PRN Reason: Mg less than 1.9 Stop: 02/15/18 19:43 Miscellaneous (Vancomycin Iv Per Pharmacy) 1 ea MC PRN PRN PRN Reason: PROTOCOL Stop: 02/15/18 19:42 Morphine Sulfate (Morphine) 1 mg IVP Q4HR PRN PRN Reason: Severe Pain Stop: 02/15/18 19:43 Last Admin: 12/19/17 21:26 Dose: 1 mg Ondansetron HCl (Zofran) 4 mg IVP Q6H PRN PRN Reason: Nausea / Vomiting Stop: 02/15/18 19:43 Pantoprazole Sodium (Protonix) 40 mg IVP Q12H [facility] Stop: 02/16/18 06:59 Last Admin: 12/20/17 06:18 Dose: 40 mg Potassium Chloride (Klor-Con) 40 meq PO DAILY PRN PRN Reason: k level less than 3.5 Stop: 02/15/18 19:43 Sodium Bicarbonate (Sodium Bicarbonate) 650 mg PO TID WALKER PRN Reason: Protocol Stop: 02/16/18 13:59 Last Admin: 12/19/17 21:21 Dose: Not Given Zolpidem Tartrate (Ambien) 10 mg PO HS PRN PRN Reason: Insomnia Stop: 02/15/18 19:43 Last Admin: 12/18/17 01:49 Dose: 10 mg General: Other (obtunded, intubated NAD) HEENT: Atraumatic, Other (no discharge) Neck: Supple, no JVD, no Thyromegaly Cardiovascular: Regular rate Lungs: Other (has bl rales and congestion) Abdomen: Bowel sounds, Soft, Hepatomegaly, Distended, no Tender, no Rebound, no Mass, no Guarding Extremities: Edema, no Tender Neurological: no Normal gait, no Normal speech, no Strength at 5/5 X4 ext, no Normal tone Skin: no Rash Psych/Mental Status: Other (no psychosis) - Procedures Procedures: Procedures Procedure Code Date BLOOD TRANSFUSION SERVICE 29537 12/17/17 TRANSFUSE NONAUT RED BLOOD CELLS IN PERIPH VEIN, PERC 81205A9 12/17/17 Assessment/Plan - Problem List Patient Problems: All Active Problems BLOOD IN STOOL (Acute) - Assessment Assessment: # HCV # Cirrhosis # Possible hepatic encephalopathy # GI bleeding # Anemia # Coagulopathy # Respiratory failure Appears decompensated by encephalopathy and coagulopathy. EGD did not reveal varices, but there was blood in the stomach. The colonoscopy complete to the transverse colon showed blood clots and diverticulum. Pt desaturated and required intubation and colonoscopy had to be aborted. Pt likely oozing from all mucosal surfaces given profound coagulopathy on admission. US shows no large ascites, and CT shows no liver lesion. KUB and CXR reveal no free air after colonoscopy. Fibrinogen is low, and pt receiving cryo from process control technician. Likely is in DIC as a result of decompensated cirrhosis. Overall prognosis is poor given her profound decompensation. Plan: - monitor hgb and DIC metrics. INR and hgb improved today, but this may not hold if her DIC continues - abx - cryo and plt transfusion as per process control technician - would advise against further endoscopy at this time given high risk of mortality and morbidity - resp failure management as per pulm - NPO for now, can think about NG feeding if she recovers further - transfuse pRBC to keep hgb > 7 Not unreasonable to have a goals of care discussion if she does not improve over the next 24-48 hours
--- NOTE | 2017-12-20 09:03 | Diagnostic Imaging Report ---
CHEST X-RAY: AP view INDICATION: Intubation COMPARISON: Chest x-ray earlier the same day at 7:44 AM FINDINGS: ET tube is seen with tip 2.6 cm above the Yoselin. Congestive changes seen with left effusion and left lung infiltrates. Mild cardiomegaly is noted. NG tube is seen curled in the stomach. IMPRESSION: ET tube with tip 2.6 cm above the yoselin. NG tube curled in the stomach with tip along the fundal portion. Congestive changes with left effusion and left lung infiltrates.
[2017-12-20 09:27] LABS: ALLEN TEST Positive; pH 7.53 (7.35-7.45)
--- NOTE | 2017-12-20 09:31 | General Progress Note ---
Subjective - Review of Systems Service Date: 12/20/17 Subjective: Pt seen and eval. Had golytely last night in prep for colonoscopy and EGD on . She continues to have mauri blood in rectum. GI has ordered 2 units PRBCs on 12/19/17. No n,v or cp. Afebrile. BS have been high. No drips. K was very low. Status post 80 meq on 12/19/17. Pt had CT abd and pelvis done. She has bl asp pna as well. BP has been fluctuating. Pt making urine. 12/19/17 PM: Pt had egd and incomplete colonoscopy due to massive bleeding and coagulopathy. She's been desaturating. She was intubated. On vent now. Objective - Results Result Diagrams: 12/20/17 04:10 12/20/17 04:10 Recent Labs: Laboratory Last Values WBC 10.9 Th/cmm (4.8-10.8) H 12/20/17 04:10 RBC 3.40 Mil/cmm (3.80-5.10) L 12/20/17 04:10 Hgb 10.4 gm/dL (12-16) L D 12/20/17 04:10 Hct 30.6 % (41.0-60) L D 12/20/17 04:10 MCV 90.1 fl (81-100) 12/20/17 04:10 MCH 30.5 pg (27.0-31.0) 12/20/17 04:10 MCHC Differential 33.9 pg (28.0-36.0) 12/20/17 04:10 RDW 14.1 % (11.5-20.0) 12/20/17 04:10 Plt Count 62 Th/cmm (150-400) L 12/20/17 04:10 MPV 7.7 fl 12/20/17 04:10 Neutrophils % 73.4 % (40.0-80.0) 12/19/17 17:02 Band Neutrophils % 3 % (0-10) 12/20/17 04:10 Lymphocytes % 21.1 % (20.0-50.0) 12/19/17 17:02 Monocytes % 5.3 % (2.0-10.0) 12/19/17 17:02 Eosinophils % 0.1 % (0.0-5.0) 12/19/17 17:02 Basophils % 0.1 % (0.0-2.0) 12/19/17 17:02 Neutrophils (Manual) 90 % (40-80) H 12/20/17 04:10 Lymphocytes 5 % (20-50) L 12/20/17 04:10 Monocytes 2 % (2-10) 12/20/17 04:10 Eosinophils 0 % (0-5) 12/19/17 06:30 Basophils 0 % (0-3) 12/19/17 06:30 Hypochromia 1+ 12/19/17 06:30 Platelet Estimate DECREASED PLATELETS (NORMAL) 12/20/17 04:10 PT 21.6 SECONDS (9.5-11.5) H 12/20/17 04:10 INR 2.01 (0.5-1.4) H 12/20/17 04:10 PTT (Actin FS) 37.8 SECONDS (26.0-38.0) 12/17/17 17:22 Fibrinogen 92.0 mg/dL (200.0-400.0) L* 12/20/17 04:10 Specimen Source Arterial 12/19/17 18:10 Sample Site LEFT BRACHIAL 12/19/17 18:10 pH 7.28 (7.35-7.45) L 12/19/17 18:10 pCO2 38.0 mmHg (35.0-45.0) 12/19/17 18:10 pO2 90.0 mmHg (80.0-100.0) 12/19/17 18:10 HCO3 18.5 mEq/L (20.0-26.0) L 12/19/17 18:10 Base Excess -8.2 mEq/L (-3.0-3.0) L 12/19/17 18:10 O2 Saturation 96.0 % (92.0-100.0) 12/19/17 18:10 Selvin Test NA 12/19/17 18:10 Vent Rate 24 12/19/17 18:10 Inspired O2 100 12/19/17 18:10 Tidal Volume 500 12/19/17 18:10 PEEP 5 12/19/17 18:10 Pressure (ins/psv/peep) NA 12/19/17 18:10 Critical Value HSTEHNO 12/19/17 18:10 Sodium 151 mEq/L (136-145) H 12/20/17 04:10 Potassium 2.6 mEq/L (3.5-5.1) L* 12/20/17 04:10 Chloride 118 mEq/L (98-107) H 12/20/17 04:10 Carbon Dioxide 18.0 mEq/L (21.0-31.0) L 12/20/17 04:10 Anion Gap 17.6 (7.0-16.0) H 12/20/17 04:10 BUN 57 mg/dL (7-25) H 12/20/17 04:10 Creatinine 1.6 mg/dL (0.6-1.2) H 12/20/17 04:10 Est GFR ( Amer) 42.1 ml/min (>90) 12/20/17 04:10 Est GFR (Non-Af Amer) 34.8 ml/min 12/20/17 04:10 BUN/Creatinine Ratio 35.6 12/20/17 04:10 Glucose 152 mg/dL (70-105) H D 12/20/17 04:10 POC Glucose 125 MG/DL (70 - 105) H 12/20/17 05:26 Hemoglobin A1c % 4.6 % (4.0-6.0) 12/18/17 03:33 Whole Bld Lactic Acid 6.20 mmol/L (0.60-1.99) H* 12/18/17 16:40 Calcium 7.0 mg/dL (8.6-10.3) L 12/20/17 04:10 Magnesium 1.7 mg/dL (1.9-2.7) L 12/20/17 04:10 Total Bilirubin 3.3 mg/dL (0.3-1.0) H 12/20/17 04:10 Direct Bilirubin 1.82 mg/dL (0.0-0.2) H 12/19/17 06:30 AST 432 U/L (13-39) H 12/20/17 04:10 ALT 175 U/L (7-52) H 12/20/17 04:10 Alkaline Phosphatase 64 U/L (34-104) 12/20/17 04:10 Ammonia 64 umol/L (16-53) H 12/17/17 17:22 Creatine Kinase 144 U/L (30-223) 12/18/17 16:50 Troponin I 0.19 ng/mL (0.01-0.05) H* 12/17/17 17:22 B-Natriuretic Peptide 40.8 pg/mL (5.0-100.0) 12/17/17 17:22 Total Protein 3.6 gm/dL (6.0-8.3) L 12/20/17 04:10 Albumin < 1.5 gm/dL (3.7-5.3) L 12/20/17 04:10 Globulin 2.1 gm/dL 12/20/17 04:10 Albumin/Globulin Ratio 0.7 (1.0-1.8) L 12/20/17 04:10 Triglycerides 85 mg/dL (<150) 12/17/17 17:22 Cholesterol 71 mg/dL (<200) 12/17/17 17:22 LDL Cholesterol Direct 53 mg/dL (75-193) L 12/17/17 17:22 HDL Cholesterol 4 mg/dL (23-92) L 12/17/17 17:22 Amylase 14 U/L (29-103) L 12/17/17 17:22 Lipase 22 U/L (11-82) 12/17/17 17:22 Serum , Qual NEGATIVE (NEGATIVE) 12/17/17 17:22 Urine Source SO PORT 12/17/17 19:50 Urine Color YELLOW 12/17/17 19:50 Urine Clarity CLOUDY (CLEAR) H 12/17/17 19:50 Urine pH 5.0 (4.6 - 8.0) 12/17/17 19:50 Ur Specific [place] 1.025 (1.005-1.030) 12/17/17 19:50 Urine Protein NEGATIVE mg/dL (NEGATIVE) 12/17/17 19:50 Urine Glucose (UA) NEGATIVE mg/dL (NEGATIVE) 12/17/17 19:50 Urine Ketones NEGATIVE mg/dL (NEGATIVE) 12/17/17 19:50 Urine Blood TRACE (NEGATIVE) 12/17/17 19:50 Urine Nitrate NEGATIVE (NEGATIVE) 12/17/17 19:50 Urine Bilirubin NEGATIVE (NEGATIVE) 12/17/17 19:50 Urine Urobilinogen 0.2 E.U./dL (0.2 - 1.0) 12/17/17 19:50 Ur Leukocyte Esterase MODERATE (NEGATIVE) H 12/17/17 19:50 Urine RBC 10-25 /hpf (0-5) H 12/17/17 19:50 Urine WBC 6-10 /hpf (0-5) H 12/17/17 19:50 Ur Epithelial Cells OCCASIONAL /lpf (FEW) 12/17/17 19:50 Calcium Oxalate Crystal FEW /hpf 12/17/17 19:50 Amorphous Sediment FEW URATES (NONE SEEN) 12/17/17 19:50 Urine Bacteria MANY /hpf (NONE SEEN) H 12/17/17 19:50 Random Vancomycin 14.0 ug/mL (5.0-40.0) 12/19/17 06:30 Acetaminophen < 10.0 ug/mL (10.0-30.0) L 12/19/17 06:30 HIV 1&2 Antibody Screen NEGATIVE (NEG) 12/19/17 06:30 Blood Type AB POSITIVE 12/19/17 10:26 Antibody Screen NEGATIVE 12/18/17 10:20 Crossmatch See Detail 12/18/17 10:20 - Physical Exam Vitals and I&O: Vital Signs Temp 97.8 F 12/20/17 08:00 Pulse 114 12/20/17 08:00 Resp 15 12/20/17 08:00 BP 97/38 12/20/17 08:09 Pulse Ox 100 12/20/17 08:00 Intake & Output 12/19/17 12/20/17 12/20/17 18:59 06:59 18:59 Intake Total 2651 3080.833 Output Total 250 60 Balance 2401 3020.833 Weight (lbs) 56.699 kg 68.719 kg 68.719 kg Intake: Intake, IV Amount 1551 1930.833 KCL 20mEq/100mL Premix 20 100 meq In 100 ml @ 50 mls/ hr IV Q2H [facility] Rx#: [id number] Potassium Chloride 40 meq 272.5 Lidocaine 1% 20mL Vial 25 mg In Sodium Chloride 0.9% 250 ml @ 68 mls/hr IV DAILY PRN Rx#: [id number] Sodium Bicarbonate 8.4% 1408.333 50 meq In D5-0.45NS 1,000 ml @ 125 mls/hr IV . Q8H24M [facility] Rx#:[id number] Sodium Chloride 0.9% 1, 1000 000 ml @ Wide Open IV . Q0M ONE Rx#:[id number] Vancomycin HCl 1 gm In 250 250 Sodium Chloride 0.9% 250 ml @ 165 mls/hr IV Q18H [facility] Rx#:[id number] Blood Product 1100 1150 Output: Urine 250 60 Stool 0 Other: # Bowel Movements 2 0 Stool Characteristics Liquid Bloody Weight Source Bedscale Bedscale Bedscale Active Medications: Current Medications Acetaminophen (Tylenol) 650 mg PO Q6H PRN PRN Reason: HEADACHE/TEMP ABOVE 100F Stop: 02/15/18 19:43 Albuterol/Ipratropium (Duoneb Neb) 3 ml HHN Q6HRT [facility] Stop: 02/17/18 18:59 Last Admin: 12/20/17 07:23 Dose: 3 ml Chlorhexidine Gluconate (Peridex) 15 ml MM 0800,1999 [facility] Stop: 02/17/18 19:59 Last Admin: 12/20/17 08:09 Dose: 15 ml Magnesium Sulfate (Magnesium Sulfate Premix) 2 gm in 50 mls @ 25 mls/hr IV DAILY PRN PRN Reason: Magnesium level less than 1.6 Stop: 02/15/18 19:43 Vancomycin HCl 1 gm/ Sodium (Chloride) 250 mls @ 165 mls/hr IV Q18H [facility] Stop: 02/17/18 08:59 Last Infusion: 12/20/17 06:22 Dose: Infused Potassium Chloride 40 meq/Lidocaine HCl 25 mg/ Sodium Chloride 272.5 mls @ 68 mls/hr IV DAILY PRN PRN Reason: k level less than 3.2 Stop: 02/17/18 14:53 Last Admin: 12/20/17 09:00 Dose: 68 mls/hr Sodium Bicarbonate 50 meq/ (Dextrose/Sodium Chloride) 1,050 mls @ 125 mls/hr IV .Q8H24M [facility] Stop: 12/20/17 18:26 Last Infusion: 12/20/17 05:43 Dose: 125 mls/hr Insulin Aspart (Novolog Insulin Sliding Scale) 0 units SUBQ Q6H [facility] PRN Reason: Protocol Stop: 02/16/18 11:59 Last Admin: 12/20/17 05:39 Dose: Not Given Insulin Detemir (Levemir Insulin) 5 units SUBQ HS [facility] PRN Reason: Protocol Stop: 02/17/18 20:59 Last Admin: 12/19/17 21:24 Dose: 5 units Lorazepam (Ativan) 1 mg IVP Q4HR PRN; Protocol PRN Reason: Anxiety Stop: 02/15/18 19:43 Magnesium Oxide (Mag-Oxide) 400 mg PO BID PRN PRN Reason: Mg less than 1.9 Stop: 02/15/18 19:43 Miscellaneous (Vancomycin Iv Per Pharmacy) 1 ea MC PRN PRN PRN Reason: PROTOCOL Stop: 02/15/18 19:42 Morphine Sulfate (Morphine) 1 mg IVP Q4HR PRN PRN Reason: Severe Pain Stop: 02/15/18 19:43 Last Admin: 12/19/17 21:26 Dose: 1 mg Ondansetron HCl (Zofran) 4 mg IVP Q6H PRN PRN Reason: Nausea / Vomiting Stop: 02/15/18 19:43 Pantoprazole Sodium (Protonix) 40 mg IVP Q12H [facility] Stop: 02/16/18 06:59 Last Admin: 12/20/17 06:18 Dose: 40 mg Potassium Chloride (Klor-Con) 40 meq PO DAILY PRN PRN Reason: k level less than 3.5 Stop: 02/15/18 19:43 Sodium Bicarbonate (Sodium Bicarbonate) 650 mg PO TID [facility] PRN Reason: Protocol Stop: 02/16/18 13:59 Last Admin: 12/20/17 09:00 Dose: Not Given Zolpidem Tartrate (Ambien) 10 mg PO HS PRN PRN Reason: Insomnia Stop: 02/15/18 19:43 Last Admin: 12/18/17 01:49 Dose: 10 mg General: Mild distress, Other (obtunded, intubated ) HEENT: Atraumatic, PERRLA, Other (no discharge) Neck: Supple, no JVD, no Thyromegaly Cardiovascular: Regular rate Lungs: Other (has bl rales and congestion) Abdomen: Bowel sounds, Hepatomegaly, Distended, no Tender, no Rebound, no Mass, no Guarding Extremities: Edema, no Tender Neurological: no Normal gait, no Normal speech, no Strength at 5/5 X4 ext, no Normal tone Skin: no Rash Psych/Mental Status: Other (no psychosis) - Procedures Procedures: Procedures Procedure Code Date BLOOD TRANSFUSION SERVICE 10392 12/17/17 TRANSFUSE NONAUT RED BLOOD CELLS IN PERIPH VEIN, 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 2 units PRBCs to be transfused today on 12/19/17. CT abd pelvis shows multiple issues. GI, Pulm, ID, Cardio, Nephro have been consulted. Poor prognosis. Pt continues to have bright red blood per rectum. 12/19/17: 2 units PRBCs transfusion. No drips. Colonoscopy and EGD by Dr. Benjamin. Colonoscopy incomplete due to massive bleeding as result of coagulopathy. On fsbs and riss. Add Levimir. Pain control. FU on cbc and chem 7. 2 K riders due to K being 2. Pt desaturated and was intubated in evening. 12/20/17: Pt is intubated. Status post EGD and incomplete colonoscopy-had sig bleeding. Called daughter Angelita Alvarado to discussed poor prognosis. [phone] Cell. No answer. Left message. Pt's aunt has been visiting. Status post bicarb administration. Vent setting: AC 26 PEEP 5 TV 500 FiO2 30% Nutritional Asmnt/Malnutr-PDOC - Dietary Evaluation Malnutrition Findings (Please click <Entered> for more info): Nutritional Asmnt/Malnutrition Start: 12/18/17 15: 09 Text: Status: Complete Freq: Document 12/18/17 15:09 LCHENG (Rec: 12/18/17 15:27 [id number]) Nutritional Asmnt/Malnutrition Patient General Information Nutritional Screening High Risk Diagnosis GI bleed, sepsis, hyponatremia , hyperkalemia Pertinent Medical Hx/Surgical Hx pulmonary hypertension, liver cirrhosis, hep C, sezirue, lumbar spinal stenosis Subjective Information Consult received for gluteal sulcus moisture lesion. Per H& P, pt refused to eat for few days before admission. Pt seen lying in bed at time of visit , awake, nonverbal, note folowing commands. RN was busy with pt. glucose 19 at admission noted. Pt has NGtube noted. Current Diet Order/ Nutrition Support NPO Pertinent Medications D5-0.9%ns, novolog, protonix, K phos Pertinent Labs 12/18 Na 138, K 3.3, Cl 110, BUN 81, Cr 2.4, glucose 762, POC 228-287 12/17 Na 130, K 6.2, Cl 92, BUN 107, Cr 3.6, glucose 19, POC 77-168 Nutritional Hx/Data Height 1.65 m Height (Calculated Centimeters) 165.1 Current Weight (lbs) 48.353 kg Weight (Calculated Kilograms) 48.4 Weight (Calculated Grams) 27175.9 [place] Body Weight 130 Body Mass Index (BMI) 17.7 Weight Status Underweight GI Symptoms GI Symptoms None Last BM no record Skin Integrity/Comment: loose, wound Naveen 14 Current %PO Negligible < 25% Estimated Nutritional Goals BEE in Kcals: Using Current wt Calories/Kcals/Kg 30-35 Kcals Calculated 9411-0397 Protein: Using Current wt Protein g/k.2-1.4 monitor renal labs Protein Calculated 57-80 Fluid: ml per MD Nutritional Problem 1. Problem Problem altered nutrition related labs Etiology renal dysfunction, endocrine dysfunction Signs/Symptoms: BUN 81, Cr 2.4, glucose 762, POC 228-287 Intervention/Recommendation Comments 1. Monitor NPO status. If TF needed, RD availale for TF consult. 2. Monitor wt, labs and skin integrity 3. F/U as high risk in 2 days, 12/20 Expected Outcomes/Goals Expected Outcomes/Goals 1. Pt to meet at least 75% of nutritional needs in 2-3 days. 2. Wt stability, skin to remain intact, labs to approach WNL.
--- NOTE | 2017-12-20 10:41 | General Progress Note ---
Subjective - Review of Systems Service Date: 12/20/17 Events since last encounter: intubated on vent low uop overnight. given lasix this am Subjective: as above Objective - Results Result Diagrams: 12/20/17 04:10 12/20/17 04:10 Recent Labs: Laboratory Last Values WBC 10.9 Th/cmm (4.8-10.8) H 12/20/17 04:10 RBC 3.40 Mil/cmm (3.80-5.10) L 12/20/17 04:10 Hgb 10.4 gm/dL (12-16) L D 12/20/17 04:10 Hct 30.6 % (41.0-60) L D 12/20/17 04:10 MCV 90.1 fl (81-100) 12/20/17 04:10 MCH 30.5 pg (27.0-31.0) 12/20/17 04:10 MCHC Differential 33.9 pg (28.0-36.0) 12/20/17 04:10 RDW 14.1 % (11.5-20.0) 12/20/17 04:10 Plt Count 62 Th/cmm (150-400) L 12/20/17 04:10 MPV 7.7 fl 12/20/17 04:10 Neutrophils % 73.4 % (40.0-80.0) 12/19/17 17:02 Band Neutrophils % 3 % (0-10) 12/20/17 04:10 Lymphocytes % 21.1 % (20.0-50.0) 12/19/17 17:02 Monocytes % 5.3 % (2.0-10.0) 12/19/17 17:02 Eosinophils % 0.1 % (0.0-5.0) 12/19/17 17:02 Basophils % 0.1 % (0.0-2.0) 12/19/17 17:02 Neutrophils (Manual) 90 % (40-80) H 12/20/17 04:10 Lymphocytes 5 % (20-50) L 12/20/17 04:10 Monocytes 2 % (2-10) 12/20/17 04:10 Eosinophils 0 % (0-5) 12/19/17 06:30 Basophils 0 % (0-3) 12/19/17 06:30 Hypochromia 1+ 12/19/17 06:30 Platelet Estimate DECREASED PLATELETS (NORMAL) 12/20/17 04:10 PT 21.6 SECONDS (9.5-11.5) H 12/20/17 04:10 INR 2.01 (0.5-1.4) H 12/20/17 04:10 PTT (Actin FS) 37.8 SECONDS (26.0-38.0) 12/17/17 17:22 Fibrinogen 92.0 mg/dL (200.0-400.0) L* 12/20/17 04:10 Specimen Source Arterial 12/20/17 09:00 Sample Site Right Radial 12/20/17 09:00 pH 7.53 (7.35-7.45) H 12/20/17 09:00 pCO2 24.0 mmHg (35.0-45.0) L* 12/20/17 09:00 pO2 89.0 mmHg (80.0-100.0) 12/20/17 09:00 HCO3 24.0 mEq/L (20.0-26.0) 12/20/17 09:00 Base Excess -1.2 mEq/L (-3.0-3.0) 12/20/17 09:00 O2 Saturation 98.0 % (92.0-100.0) 12/20/17 09:00 Selvin Test Positive 12/20/17 09:00 Vent Rate 26 12/20/17 09:00 Inspired O2 30 12/20/17 09:00 Tidal Volume 500 12/20/17 09:00 PEEP 5 12/20/17 09:00 Pressure (ins/psv/peep) NA 12/20/17 09:00 Critical Value SH 12/20/17 09:00 Sodium 151 mEq/L (136-145) H 12/20/17 04:10 Potassium 2.6 mEq/L (3.5-5.1) L* 12/20/17 04:10 Chloride 118 mEq/L (98-107) H 12/20/17 04:10 Carbon Dioxide 18.0 mEq/L (21.0-31.0) L 12/20/17 04:10 Anion Gap 17.6 (7.0-16.0) H 12/20/17 04:10 BUN 57 mg/dL (7-25) H 12/20/17 04:10 Creatinine 1.6 mg/dL (0.6-1.2) H 12/20/17 04:10 Est GFR ( Amer) 42.1 ml/min (>90) 12/20/17 04:10 Est GFR (Non-Af Amer) 34.8 ml/min 12/20/17 04:10 BUN/Creatinine Ratio 35.6 12/20/17 04:10 Glucose 152 mg/dL (70-105) H D 12/20/17 04:10 POC Glucose 125 MG/DL (70 - 105) H 12/20/17 05:26 Hemoglobin A1c % 4.6 % (4.0-6.0) 12/18/17 03:33 Whole Bld Lactic Acid 6.20 mmol/L (0.60-1.99) H* 12/18/17 16:40 Calcium 7.0 mg/dL (8.6-10.3) L 12/20/17 04:10 Magnesium 1.7 mg/dL (1.9-2.7) L 12/20/17 04:10 Total Bilirubin 3.3 mg/dL (0.3-1.0) H 12/20/17 04:10 Direct Bilirubin 1.82 mg/dL (0.0-0.2) H 12/19/17 06:30 AST 432 U/L (13-39) H 12/20/17 04:10 ALT 175 U/L (7-52) H 12/20/17 04:10 Alkaline Phosphatase 64 U/L (34-104) 12/20/17 04:10 Ammonia 64 umol/L (16-53) H 12/17/17 17:22 Creatine Kinase 144 U/L (30-223) 12/18/17 16:50 Troponin I 0.19 ng/mL (0.01-0.05) H* 12/17/17 17:22 B-Natriuretic Peptide 40.8 pg/mL (5.0-100.0) 12/17/17 17:22 Total Protein 3.6 gm/dL (6.0-8.3) L 12/20/17 04:10 Albumin < 1.5 gm/dL (3.7-5.3) L 12/20/17 04:10 Globulin 2.1 gm/dL 12/20/17 04:10 Albumin/Globulin Ratio 0.7 (1.0-1.8) L 12/20/17 04:10 Triglycerides 85 mg/dL (<150) 12/17/17 17:22 Cholesterol 71 mg/dL (<200) 12/17/17 17:22 LDL Cholesterol Direct 53 mg/dL (75-193) L 12/17/17 17:22 HDL Cholesterol 4 mg/dL (23-92) L 12/17/17 17:22 Amylase 14 U/L (29-103) L 12/17/17 17:22 Lipase 22 U/L (11-82) 12/17/17 17:22 Serum , Qual NEGATIVE (NEGATIVE) 12/17/17 17:22 Urine Source SO PORT 12/17/17 19:50 Urine Color YELLOW 12/17/17 19:50 Urine Clarity CLOUDY (CLEAR) H 12/17/17 19:50 Urine pH 5.0 (4.6 - 8.0) 12/17/17 19:50 Ur Specific [place] 1.025 (1.005-1.030) 12/17/17 19:50 Urine Protein NEGATIVE mg/dL (NEGATIVE) 12/17/17 19:50 Urine Glucose (UA) NEGATIVE mg/dL (NEGATIVE) 12/17/17 19:50 Urine Ketones NEGATIVE mg/dL (NEGATIVE) 12/17/17 19:50 Urine Blood TRACE (NEGATIVE) 12/17/17 19:50 Urine Nitrate NEGATIVE (NEGATIVE) 12/17/17 19:50 Urine Bilirubin NEGATIVE (NEGATIVE) 12/17/17 19:50 Urine Urobilinogen 0.2 E.U./dL (0.2 - 1.0) 12/17/17 19:50 Ur Leukocyte Esterase MODERATE (NEGATIVE) H 12/17/17 19:50 Urine RBC 10-25 /hpf (0-5) H 12/17/17 19:50 Urine WBC 6-10 /hpf (0-5) H 12/17/17 19:50 Ur Epithelial Cells OCCASIONAL /lpf (FEW) 12/17/17 19:50 Calcium Oxalate Crystal FEW /hpf 12/17/17 19:50 Amorphous Sediment FEW URATES (NONE SEEN) 12/17/17 19:50 Urine Bacteria MANY /hpf (NONE SEEN) H 12/17/17 19:50 Random Vancomycin 14.0 ug/mL (5.0-40.0) 12/19/17 06:30 Acetaminophen < 10.0 ug/mL (10.0-30.0) L 12/19/17 06:30 HIV 1&2 Antibody Screen NEGATIVE (NEG) 12/19/17 06:30 Blood Type AB POSITIVE 12/19/17 10:26 Antibody Screen NEGATIVE 12/18/17 10:20 Crossmatch See Detail 12/18/17 10:20 - Physical Exam Vitals and I&O: Vital Signs Temp 97.8 F 12/20/17 08:00 Pulse 114 12/20/17 09:42 Resp 15 12/20/17 08:00 BP 97/38 12/20/17 08:09 Pulse Ox 100 12/20/17 09:42 Intake & Output 12/19/17 12/20/17 12/20/17 18:59 06:59 18:59 Intake Total 2651 3080.833 Output Total 250 60 Balance 2401 3020.833 Weight (lbs) 56.699 kg 68.719 kg 68.719 kg Intake: Intake, IV Amount 1551 1930.833 KCL 20mEq/100mL Premix 20 100 meq In 100 ml @ 50 mls/ hr IV Q2H [facility] Rx#: [id number] Potassium Chloride 40 meq 272.5 Lidocaine 1% 20mL Vial 25 mg In Sodium Chloride 0.9% 250 ml @ 68 mls/hr IV DAILY PRN Rx#: [id number] Sodium Bicarbonate 8.4% 1408.333 50 meq In D5-0.45NS 1,000 ml @ 125 mls/hr IV . Q8H24M [facility] Rx#:[id number] Sodium Chloride 0.9% 1, 1000 000 ml @ Wide Open IV . Q0M [facility] Rx#:[id number] Vancomycin HCl 1 gm In 250 250 Sodium Chloride 0.9% 250 ml @ 165 mls/hr IV Q18H [facility] Rx#:[id number] Blood Product 1100 1150 Output: Urine 250 60 Stool 0 Other: # Bowel Movements 2 0 Stool Characteristics Liquid Mucoid Bloody Bloody Weight Source Bedscale Bedscale Bedscale Active Medications: Current Medications Acetaminophen (Tylenol) 650 mg PO Q6H PRN PRN Reason: HEADACHE/TEMP ABOVE 100F Stop: 02/15/18 19:43 Albuterol/Ipratropium (Duoneb Neb) 3 ml HHN Q6HRT [facility] Stop: 02/17/18 18:59 Last Admin: 12/20/17 07:23 Dose: 3 ml Chlorhexidine Gluconate (Peridex) 15 ml MM 08,1999 [facility] Stop: 02/17/18 19:59 Last Admin: 12/20/17 08:09 Dose: 15 ml Magnesium Sulfate (Magnesium Sulfate Premix) 2 gm in 50 mls @ 25 mls/hr IV DAILY PRN PRN Reason: Magnesium level less than 1.6 Stop: 02/15/18 19:43 Vancomycin HCl 1 gm/ Sodium (Chloride) 250 mls @ 165 mls/hr IV Q18H [facility] Stop: 02/17/18 08:59 Last Infusion: 12/20/17 06:22 Dose: Infused Potassium Chloride 40 meq/Lidocaine HCl 25 mg/ Sodium Chloride 272.5 mls @ 68 mls/hr IV DAILY PRN PRN Reason: k level less than 3.2 Stop: 02/17/18 14:53 Last Admin: 12/20/17 09:00 Dose: 68 mls/hr Sodium Bicarbonate 50 meq/ (Dextrose/Sodium Chloride) 1,050 mls @ 125 mls/hr IV .Q8H24M [facility] Stop: 12/20/17 18:26 Last Infusion: 12/20/17 05:43 Dose: 125 mls/hr Insulin Aspart (Novolog Insulin Sliding Scale) 0 units SUBQ Q6H [facility] PRN Reason: Protocol Stop: 02/16/18 11:59 Last Admin: 12/20/17 05:39 Dose: Not Given Insulin Detemir (Levemir Insulin) 5 units SUBQ HS [facility] PRN Reason: Protocol Stop: 02/17/18 20:59 Last Admin: 12/19/17 21:24 Dose: 5 units Lorazepam (Ativan) 1 mg IVP Q4HR PRN; Protocol PRN Reason: Anxiety Stop: 02/15/18 19:43 Magnesium Oxide (Mag-Oxide) 400 mg PO BID PRN PRN Reason: Mg less than 1.9 Stop: 02/15/18 19:43 Miscellaneous (Vancomycin Iv Per Pharmacy) 1 ea [facility] PRN PRN PRN Reason: PROTOCOL Stop: 02/15/18 19:42 Morphine Sulfate (Morphine) 1 mg IVP Q4HR PRN PRN Reason: Severe Pain Stop: 02/15/18 19:43 Last Admin: 12/19/17 21:26 Dose: 1 mg Ondansetron HCl (Zofran) 4 mg IVP Q6H PRN PRN Reason: Nausea / Vomiting Stop: 02/15/18 19:43 Pantoprazole Sodium (Protonix) 40 mg IVP Q12H [facility] Stop: 02/16/18 06:59 Last Admin: 12/20/17 06:18 Dose: 40 mg Potassium Chloride (Klor-Con) 40 meq PO DAILY PRN PRN Reason: k level less than 3.5 Stop: 02/15/18 19:43 Sodium Bicarbonate (Sodium Bicarbonate) 650 mg PO TID [facility] PRN Reason: Protocol Stop: 02/16/18 13:59 Last Admin: 12/20/17 09:00 Dose: Not Given Zolpidem Tartrate (Ambien) 10 mg PO HS PRN PRN Reason: Insomnia Stop: 02/15/18 19:43 Last Admin: 12/18/17 01:49 Dose: 10 mg General: Other (obtunded, intubated ) HEENT: Atraumatic, PERRLA, Other (no discharge) Neck: Supple, no JVD, no Thyromegaly Cardiovascular: Regular rate Lungs: Other (has bl rales and congestion) Abdomen: Bowel sounds, Hepatomegaly, Distended, no Tender, no Rebound, no Mass, no Guarding Extremities: Edema, no Tender Neurological: no Normal gait, no Normal speech, no Strength at 5/5 X4 ext, no Normal tone Skin: no Rash Psych/Mental Status: Other (no psychosis) - Procedures Procedures: Procedures Procedure Code Date BLOOD TRANSFUSION SERVICE 50952 12/17/17 TRANSFUSE NONAUT RED BLOOD CELLS IN PERIPH VEIN, MERGED WITH [facility] 28526N9 12/17/17 Assessment/Plan - Problem List Patient Problems: All Active Problems BLOOD IN STOOL (Acute) - Assessment Assessment: Acute kidney injury, secondary to volume depletion, non-oliguric 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 Change fluids to D5W with bicarbonate. Continue to replete K aggressively as indicated Diuresis prn Monitor Hgb. Transfuse prn. Vent support per pulmonary Prognosis guarded Nutritional Asmnt/Malnutr-PDOC - Dietary Evaluation Malnutrition Findings (Please click <Entered> for more info): Nutritional Asmnt/Malnutrition Start: 12/18/17 15: 09 Text: Status: Complete Freq: Document 12/18/17 15:09 LCHENG (Rec: 12/18/17 15:27 [facility]-FN) Nutritional Asmnt/Malnutrition Patient General Information Nutritional Screening High Risk Diagnosis GI bleed, sepsis, hyponatremia , hyperkalemia Pertinent Medical Hx/Surgical Hx pulmonary hypertension, liver cirrhosis, hep C, sezirue, lumbar spinal stenosis Subjective Information Consult received for gluteal sulcus moisture lesion. Per H& P, pt refused to eat for few days before admission. Pt seen lying in bed at time of visit , awake, nonverbal, note folowing commands. RN was busy with pt. glucose 19 at admission noted. Pt has NGtube noted. Current Diet Order/ Nutrition Support NPO Pertinent Medications D5-0.9%ns, novolog, protonix, K phos Pertinent Labs 12/18 Na 138, K 3.3, Cl 110, BUN 81, Cr 2.4, glucose 762, POC 228-287 12/17 Na 130, K 6.2, Cl 92, BUN 107, Cr 3.6, glucose 19, POC 77-168 Nutritional Hx/Data Height 1.65 m Height (Calculated Centimeters) 165.1 Current Weight (lbs) 48.353 kg Weight (Calculated Kilograms) 48.4 Weight (Calculated Grams) 57211.9 [place] Body Weight 130 Body Mass Index (BMI) 17.7 Weight Status Underweight GI Symptoms GI Symptoms None Last BM no record Skin Integrity/Comment: loose, wound Naveen 14 Current %PO Negligible < 25% Estimated Nutritional Goals BEE in Kcals: Using Current wt Calories/Kcals/Kg 30-35 Kcals Calculated 8912-0881 Protein: Using Current wt Protein g/k.2-1.4 monitor renal labs Protein Calculated 57-80 Fluid: ml per MD Nutritional Problem 1. Problem Problem altered nutrition related labs Etiology renal dysfunction, endocrine dysfunction Signs/Symptoms: BUN 81, Cr 2.4, glucose 762, POC 228-287 Intervention/Recommendation Comments 1. Monitor NPO status. If TF needed, RD availale for TF consult. 2. Monitor wt, labs and skin integrity 3. F/U as high risk in 2 days, 12/20 Expected Outcomes/Goals Expected Outcomes/Goals 1. Pt to meet at least 75% of nutritional needs in 2-3 days. 2. Wt stability, skin to remain intact, labs to approach WNL.
[2017-12-20] MEDS ORDERED: [UNRECOGNIZED DRUG - OTHER] IV SCH (10:44)
[2017-12-20] MEDS ORDERED: SODIUM BICARBONATE IV SCH (10:44)
[2017-12-20] MEDS ORDERED: KCL IV SCH (10:44)
[2017-12-20] MEDS ORDERED: Sodium Chloride 0.9% 1,000 ML IV ONE ×2 (11:25→14:39)
[2017-12-20] MEDS ORDERED: Albumin 25% 25gm/100mL 25 GM/100 ML BTL IV ONE ×2 (11:43→14:39)
--- NOTE | 2017-12-20 11:45 | General Progress Note ---
Subjective - Review of Systems Service Date: 12/20/17 Objective - Results Result Diagrams: 12/20/17 04:10 12/20/17 04:10 Recent Labs: Laboratory Last Values WBC 10.9 Th/cmm (4.8-10.8) H 12/20/17 04:10 RBC 3.40 Mil/cmm (3.80-5.10) L 12/20/17 04:10 Hgb 10.4 gm/dL (12-16) L D 12/20/17 04:10 Hct 30.6 % (41.0-60) L D 12/20/17 04:10 MCV 90.1 fl (81-100) 12/20/17 04:10 MCH 30.5 pg (27.0-31.0) 12/20/17 04:10 MCHC Differential 33.9 pg (28.0-36.0) 12/20/17 04:10 RDW 14.1 % (11.5-20.0) 12/20/17 04:10 Plt Count 62 Th/cmm (150-400) L 12/20/17 04:10 MPV 7.7 fl 12/20/17 04:10 Neutrophils % 73.4 % (40.0-80.0) 12/19/17 17:02 Band Neutrophils % 3 % (0-10) 12/20/17 04:10 Lymphocytes % 21.1 % (20.0-50.0) 12/19/17 17:02 Monocytes % 5.3 % (2.0-10.0) 12/19/17 17:02 Eosinophils % 0.1 % (0.0-5.0) 12/19/17 17:02 Basophils % 0.1 % (0.0-2.0) 12/19/17 17:02 Neutrophils (Manual) 90 % (40-80) H 12/20/17 04:10 Lymphocytes 5 % (20-50) L 12/20/17 04:10 Monocytes 2 % (2-10) 12/20/17 04:10 Eosinophils 0 % (0-5) 12/19/17 06:30 Basophils 0 % (0-3) 12/19/17 06:30 Hypochromia 1+ 12/19/17 06:30 Platelet Estimate DECREASED PLATELETS (NORMAL) 12/20/17 04:10 PT 21.6 SECONDS (9.5-11.5) H 12/20/17 04:10 INR 2.01 (0.5-1.4) H 12/20/17 04:10 PTT (Actin FS) 37.8 SECONDS (26.0-38.0) 12/17/17 17:22 Fibrinogen 92.0 mg/dL (200.0-400.0) L* 12/20/17 04:10 Specimen Source Arterial 12/20/17 09:00 Sample Site Right Radial 12/20/17 09:00 pH 7.53 (7.35-7.45) H 12/20/17 09:00 pCO2 24.0 mmHg (35.0-45.0) L* 12/20/17 09:00 pO2 89.0 mmHg (80.0-100.0) 12/20/17 09:00 HCO3 24.0 mEq/L (20.0-26.0) 12/20/17 09:00 Base Excess -1.2 mEq/L (-3.0-3.0) 12/20/17 09:00 O2 Saturation 98.0 % (92.0-100.0) 12/20/17 09:00 Selvin Test Positive 12/20/17 09:00 Vent Rate 26 12/20/17 09:00 Inspired O2 30 12/20/17 09:00 Tidal Volume 500 12/20/17 09:00 PEEP 5 12/20/17 09:00 Pressure (ins/psv/peep) NA 12/20/17 09:00 Critical Value SH 12/20/17 09:00 Sodium 151 mEq/L (136-145) H 12/20/17 04:10 Potassium 2.6 mEq/L (3.5-5.1) L* 12/20/17 04:10 Chloride 118 mEq/L (98-107) H 12/20/17 04:10 Carbon Dioxide 18.0 mEq/L (21.0-31.0) L 12/20/17 04:10 Anion Gap 17.6 (7.0-16.0) H 12/20/17 04:10 BUN 57 mg/dL (7-25) H 12/20/17 04:10 Creatinine 1.6 mg/dL (0.6-1.2) H 12/20/17 04:10 Est GFR ( Amer) 42.1 ml/min (>90) 12/20/17 04:10 Est GFR (Non-Af Amer) 34.8 ml/min 12/20/17 04:10 BUN/Creatinine Ratio 35.6 12/20/17 04:10 Glucose 152 mg/dL (70-105) H D 12/20/17 04:10 POC Glucose 125 MG/DL (70 - 105) H 12/20/17 05:26 Hemoglobin A1c % 4.6 % (4.0-6.0) 12/18/17 03:33 Whole Bld Lactic Acid 6.20 mmol/L (0.60-1.99) H* 12/18/17 16:40 Calcium 7.0 mg/dL (8.6-10.3) L 12/20/17 04:10 Magnesium 1.7 mg/dL (1.9-2.7) L 12/20/17 04:10 Total Bilirubin 3.3 mg/dL (0.3-1.0) H 12/20/17 04:10 Direct Bilirubin 1.82 mg/dL (0.0-0.2) H 12/19/17 06:30 AST 432 U/L (13-39) H 12/20/17 04:10 ALT 175 U/L (7-52) H 12/20/17 04:10 Alkaline Phosphatase 64 U/L (34-104) 12/20/17 04:10 Ammonia 64 umol/L (16-53) H 12/17/17 17:22 Creatine Kinase 144 U/L (30-223) 12/18/17 16:50 Troponin I 0.19 ng/mL (0.01-0.05) H* 12/17/17 17:22 B-Natriuretic Peptide 40.8 pg/mL (5.0-100.0) 12/17/17 17:22 Total Protein 3.6 gm/dL (6.0-8.3) L 12/20/17 04:10 Albumin < 1.5 gm/dL (3.7-5.3) L 12/20/17 04:10 Globulin 2.1 gm/dL 12/20/17 04:10 Albumin/Globulin Ratio 0.7 (1.0-1.8) L 12/20/17 04:10 Triglycerides 85 mg/dL (<150) 12/17/17 17:22 Cholesterol 71 mg/dL (<200) 12/17/17 17:22 LDL Cholesterol Direct 53 mg/dL (75-193) L 12/17/17 17:22 HDL Cholesterol 4 mg/dL (23-92) L 12/17/17 17:22 Amylase 14 U/L (29-103) L 12/17/17 17:22 Lipase 22 U/L (11-82) 12/17/17 17:22 Serum , Qual NEGATIVE (NEGATIVE) 12/17/17 17:22 Urine Source SO PORT 12/17/17 19:50 Urine Color YELLOW 12/17/17 19:50 Urine Clarity CLOUDY (CLEAR) H 12/17/17 19:50 Urine pH 5.0 (4.6 - 8.0) 12/17/17 19:50 Ur Specific [place] 1.025 (1.005-1.030) 12/17/17 19:50 Urine Protein NEGATIVE mg/dL (NEGATIVE) 12/17/17 19:50 Urine Glucose (UA) NEGATIVE mg/dL (NEGATIVE) 12/17/17 19:50 Urine Ketones NEGATIVE mg/dL (NEGATIVE) 12/17/17 19:50 Urine Blood TRACE (NEGATIVE) 12/17/17 19:50 Urine Nitrate NEGATIVE (NEGATIVE) 12/17/17 19:50 Urine Bilirubin NEGATIVE (NEGATIVE) 12/17/17 19:50 Urine Urobilinogen 0.2 E.U./dL (0.2 - 1.0) 12/17/17 19:50 Ur Leukocyte Esterase MODERATE (NEGATIVE) H 12/17/17 19:50 Urine RBC 10-25 /hpf (0-5) H 12/17/17 19:50 Urine WBC 6-10 /hpf (0-5) H 12/17/17 19:50 Ur Epithelial Cells OCCASIONAL /lpf (FEW) 12/17/17 19:50 Calcium Oxalate Crystal FEW /hpf 12/17/17 19:50 Amorphous Sediment FEW URATES (NONE SEEN) 12/17/17 19:50 Urine Bacteria MANY /hpf (NONE SEEN) H 12/17/17 19:50 Random Vancomycin 14.0 ug/mL (5.0-40.0) 12/19/17 06:30 Acetaminophen < 10.0 ug/mL (10.0-30.0) L 12/19/17 06:30 HIV 1&2 Antibody Screen NEGATIVE (NEG) 12/19/17 06:30 Blood Type AB POSITIVE 12/20/17 10:26 Antibody Screen NEGATIVE 12/20/17 10:26 Crossmatch See Detail 12/18/17 10:20 - Physical Exam Vitals and I&O: Vital Signs Temp 97.8 F 12/20/17 08:00 Pulse 125 12/20/17 11:24 Resp 26 12/20/17 10:00 BP 89/37 12/20/17 10:00 Pulse Ox 99 12/20/17 11:24 Intake & Output 12/19/17 12/20/17 12/20/17 18:59 06:59 18:59 Intake Total 2651 3080.833 Output Total 250 60 Balance 2401 3020.833 Weight (lbs) 56.699 kg 68.719 kg 68.719 kg Intake: Intake, IV Amount 1551 1930.833 KCL 20mEq/100mL Premix 20 100 meq In 100 ml @ 50 mls/ hr IV Q2H [facility] Rx#: [id number] Potassium Chloride 40 meq 272.5 Lidocaine 1% 20mL Vial 25 mg In Sodium Chloride 0.9% 250 ml @ 68 mls/hr IV DAILY PRN Rx#: [id number] Sodium Bicarbonate 8.4% 1408.333 50 meq In D5-0.45NS 1,000 ml @ 125 mls/hr IV . Q8H24M [facility] Rx#:[id number] Sodium Chloride 0.9% 1, 1000 000 ml @ Wide Open IV . Q0M [facility] Rx#:[id number] Vancomycin HCl 1 gm In 250 250 Sodium Chloride 0.9% 250 ml @ 165 mls/hr IV Q18H [facility] Rx#:[id number] Blood Product 1100 1150 Output: Urine 250 60 Stool 0 Other: # Bowel Movements 2 0 Stool Characteristics Liquid Mucoid Bloody Bloody Weight Source Bedscale Bedscale Bedscale Active Medications: Current Medications Acetaminophen (Tylenol) 650 mg PO Q6H PRN PRN Reason: HEADACHE/TEMP ABOVE 100F Stop: 02/15/18 19:43 Albuterol/Ipratropium (Duoneb Neb) 3 ml HHN Q6HRT [facility] Stop: 02/17/18 18:59 Last Admin: 12/20/17 07:23 Dose: 3 ml Chlorhexidine Gluconate (Peridex) 15 ml MM 08,1999 [facility] Stop: 02/17/18 19:59 Last Admin: 12/20/17 08:09 Dose: 15 ml Magnesium Sulfate (Magnesium Sulfate Premix) 2 gm in 50 mls @ 25 mls/hr IV DAILY PRN PRN Reason: Magnesium level less than 1.6 Stop: 02/15/18 19:43 Vancomycin HCl 1 gm/ Sodium (Chloride) 250 mls @ 165 mls/hr IV Q18H [facility] Stop: 02/17/18 08:59 Last Infusion: 12/20/17 06:22 Dose: Infused Potassium Chloride 40 meq/Lidocaine HCl 25 mg/ Sodium Chloride 272.5 mls @ 68 mls/hr IV DAILY PRN PRN Reason: k level less than 3.2 Stop: 02/17/18 14:53 Last Admin: 12/20/17 09:00 Dose: 68 mls/hr Sodium Bicarbonate 50 meq/ (Dextrose) 1,050 mls @ 125 mls/hr IV .Q8H24M [facility] Stop: 02/18/18 10:44 Sodium Bicarbonate 50 meq/ (Potassium Chloride/Dextrose) 1,050 mls @ 125 mls/ hr IV .Q8H24M [facility] Stop: 12/21/17 11:53 Norepinephrine Bitartrate 4 mg (/ Dextrose) 254 mls @ 19.05 mls/hr IV TITR PRN ; Protocol; 5 MCG/MIN PRN Reason: BP MAINTENANCE (PER PROTOCOL) Stop: 02/18/18 11:13 Last Admin: 12/20/17 11:30 Dose: 5 mcg/min, 19.05 mls/hr Insulin Aspart (Novolog Insulin Sliding Scale) 0 units SUBQ Q6H [facility] PRN Reason: Protocol Stop: 02/16/18 11:59 Last Admin: 12/20/17 05:39 Dose: Not Given Insulin Detemir (Levemir Insulin) 5 units SUBQ HS [facility] PRN Reason: Protocol Stop: 02/17/18 20:59 Last Admin: 12/19/17 21:24 Dose: 5 units Lorazepam (Ativan) 1 mg IVP Q4HR PRN; Protocol PRN Reason: Anxiety Stop: 02/15/18 19:43 Magnesium Oxide (Mag-Oxide) 400 mg PO BID PRN PRN Reason: Mg less than 1.9 Stop: 02/15/18 19:43 Miscellaneous (Vancomycin Iv Per Pharmacy) 1 ea MC PRN PRN PRN Reason: PROTOCOL Stop: 02/15/18 19:42 Morphine Sulfate (Morphine) 1 mg IVP Q4HR PRN PRN Reason: Severe Pain Stop: 02/15/18 19:43 Last Admin: 12/19/17 21:26 Dose: 1 mg Ondansetron HCl (Zofran) 4 mg IVP Q6H PRN PRN Reason: Nausea / Vomiting Stop: 02/15/18 19:43 Pantoprazole Sodium (Protonix) 40 mg IVP Q12H [facility]ALK[facility] Stop: 02/16/18 06:59 Last Admin: 12/20/17 06:18 Dose: 40 mg Potassium Chloride (Klor-Con) 40 meq PO DAILY PRN PRN Reason: k level less than 3.5 Stop: 02/15/18 19:43 Sodium Bicarbonate (Sodium Bicarbonate) 650 mg PO TID WALKER PRN Reason: Protocol Stop: 02/16/18 13:59 Last Admin: 12/20/17 09:00 Dose: Not Given Zolpidem Tartrate (Ambien) 10 mg PO HS PRN PRN Reason: Insomnia Stop: 02/15/18 19:43 Last Admin: 12/18/17 01:49 Dose: 10 mg General: Other (obtunded, intubated ) HEENT: Atraumatic, PERRLA, Other (intubated, blood from mouth) Neck: Supple, no JVD, no Thyromegaly Cardiovascular: Regular rate Lungs: Other (has bl rales and congestion) Abdomen: Bowel sounds, Hepatomegaly, Distended, no Tender, no Rebound, no Mass, no Guarding Extremities: Edema, no Tender Neurological: no Normal gait, no Normal speech, no Strength at 5/5 X4 ext, no Normal tone Skin: no Rash Psych/Mental Status: Other (no psychosis) - Procedures Procedures: Procedures Procedure Code Date BLOOD TRANSFUSION SERVICE 02772 12/17/17 TRANSFUSE NONAUT RED BLOOD CELLS IN PERIPH VEIN, PERC 78865H2 12/17/17 Assessment/Plan - Problem List Patient Problems: All Active Problems BLOOD IN STOOL (Acute) - Assessment Assessment: * Cirrhosis * GI bleeding * Hepatic coagulopathy * Encephalopathy Transfuse per parameters poor prognosis Nutritional Asmnt/Malnutr-PDOC - Dietary Evaluation Malnutrition Findings (Please click <Entered> for more info): Nutritional Asmnt/Malnutrition Start: 12/18/17 15: 09 Text: Status: Complete Freq: Document 12/18/17 15:09 HENG (Rec: 12/18/17 15:27 [id number]) Nutritional Asmnt/Malnutrition Patient General Information Nutritional Screening High Risk Diagnosis GI bleed, sepsis, hyponatremia , hyperkalemia Pertinent Medical Hx/Surgical Hx pulmonary hypertension, liver cirrhosis, hep C, sezirue, lumbar spinal stenosis Subjective Information Consult received for gluteal sulcus moisture lesion. Per H& P, pt refused to eat for few days before admission. Pt seen lying in bed at time of visit , awake, nonverbal, note folowing commands. RN was busy with pt. glucose 19 at admission noted. Pt has NGtube noted. Current Diet Order/ Nutrition Support NPO Pertinent Medications D5-0.9%ns, novolog, protonix, K phos Pertinent Labs 12/18 Na 138, K 3.3, Cl 110, BUN 81, Cr 2.4, glucose 762, POC 228-287 12/17 Na 130, K 6.2, Cl 92, BUN 107, Cr 3.6, glucose 19, POC 77-168 Nutritional Hx/Data Height 1.65 m Height (Calculated Centimeters) 165.1 Current Weight (lbs) 48.353 kg Weight (Calculated Kilograms) 48.4 Weight (Calculated Grams) 32947.9 [place] Body Weight 130 Body Mass Index (BMI) 17.7 Weight Status Underweight GI Symptoms GI Symptoms None Last BM no record Skin Integrity/Comment: loose, wound Naveen 14 Current %PO Negligible < 25% Estimated Nutritional Goals BEE in Kcals: Using Current wt Calories/Kcals/Kg 30-35 Kcals Calculated 2274-3251 Protein: Using Current wt Protein g/k.2-1.4 monitor renal labs Protein Calculated 57-80 Fluid: ml per MD Nutritional Problem 1. Problem Problem altered nutrition related labs Etiology renal dysfunction, endocrine dysfunction Signs/Symptoms: BUN 81, Cr 2.4, glucose 762, POC 228-287 Intervention/Recommendation Comments 1. Monitor NPO status. If TF needed, RD availale for TF consult. 2. Monitor wt, labs and skin integrity 3. F/U as high risk in 2 days, 12/20 Expected Outcomes/Goals Expected Outcomes/Goals 1. Pt to meet at least 75% of nutritional needs in 2-3 days. 2. Wt stability, skin to remain intact, labs to approach WNL.
[2017-12-20] MEDS ORDERED: Phenylephrine HCl 50 MG in Sodium Chloride 0.9% 250 ML IV SCH (12:15)
[2017-12-20 13:13] LABS: HEP A AB IGM Negative (Negative); HEP B CORE IGM Negative (Negative); HEP B SURFACE AG QL Negative (Negative); HEP C ANTIBODY >11.0 s/co ratio (0.0-0.9)
--- NOTE | 2017-12-21 19:37 | Discharge Summary ---
DATE OF DISCHARGE: 12/20/2017 SUMMARY DATE OF : 12/20/2017. CAUSE OF ADMISSION: The patient was a 62-year-old female. She appears older than her stated age. She is from [facility]. She has history of lumbar spinal stenosis at L4-L5 along with hepatitis C and liver cirrhosis and chronic low back pain and pulmonary hypertension. For the last few days, she is refusing to eat. She was more lethargic and more confused than usual. She was very agitated and was experiencing worsening confusion. She was experiencing bleeding through the rectum as well. She was sent to the hospital for further workup and treatment. ADMITTING DIAGNOSES: 1. Sepsis. 2. Septic shock. 3. Severe anemia due to GI hemorrhage. 4. Pulmonary hypertension. 5. Liver cirrhosis. 6. Hepatitis C. 7. Seizure disorder. 8. Metabolic encephalopathy. 9. L4-L5 spinal stenosis. 10. Severe coagulopathy due to liver failure. 11. Transaminitis due to liver cirrhosis and hepatitis C. 12. Severe malnutrition. 13. Diabetes mellitus, out of control. 14. Hyponatremia. 15. Hyperkalemia. 16. Respiratory failure. DISCHARGE DIAGNOSIS: Acute cardiopulmonary arrest. SUMMARY OF HOSPITAL COURSE: The patient was admitted to the ICU. She had multiple issues, critical care was consulted along with GI and ID as well. She was hydrated aggressively. Sodium improved. She also received a couple of K-riders. INR was elevated without any warfarin. She was in acute renal failure along with severe coagulopathy. She continued to bleed, she also had thrombocytopenia. Nephrology was consulted as well. Blood cultures were positive. I spoke with the daughter and explained a very poor prognosis and advised to make the patient comfort care after discussing poor prognosis with all the consultants. Daughter; however, wanted everything done. The patient was also seen by ID, Cardiology, and Nephrology. She received 2 units PRBCs on 12/19/2017, she was not on any drips at the time. Colonoscopy and EGD was done by Dr. Benjamin on 12/19/2017, however, the colonoscopy could not be completed because of the massive bleeding due to coagulopathy. She was placed on fingerstick blood sugars and regular insulin sliding scale, Levemir was added on 12/19/2017. She received 2 K riders. She was desaturated and was intubated in the evening of 12/19/2017 and on 12/20/2017, she continued to have bleeding and poor prognosis. Again, I discussed the very poor prognosis with the daughter. She continued to be intubated. Vent settings were reviewed as well. Unfortunately, the patient coded, code robyn was ran while the family was here and she on 12/20/2017. Prognosis poor. Physical exam and labs as charted. CONSULTS: As discussed above. JOB# [id number]
[2017-12-22 13:11] LABS: CERULOPLASMIN 12.6 mg/dL (19.0-39.0); F1 ACTIN-SMOOTH MUSC IGG 25 Units (0-19); FERRITIN 12095 ng/mL (15-150); IRON LC 80 ug/dL (27-139); TIBC (LC) <97 ug/dL (250-450); UIBC <17 ug/dL (118-369)
== END 2017-12-20 17:12 | disposition expired | DRG 871 ==
LOC: ER 16:27 → ICU 19:10
PROVIDERS: ADMIT General Practice; ATTEND General Practice
PROC: 0DB68ZX Excision of Stomach, Via Natural or Artificial Opening Endoscopic, Diagnostic (ICD-10-PCS; 2017-12-17)
PROC: 0DJD8ZZ Inspection of Lower Intestinal Tract, Via Natural or Artificial Opening Endoscopic (ICD-10-PCS; 2017-12-17)
PROC: 30233L1 Transfusion of Nonautologous Fresh Plasma into Peripheral Vein, Percutaneous Approach (ICD-10-PCS; principal; 2017-12-19)
PROC: 30233K1 Transfusion of Nonautologous Frozen Plasma into Peripheral Vein, Percutaneous Approach (ICD-10-PCS; 2017-12-19)
PROC: 5A1945Z Respiratory Ventilation, 24-96 Consecutive Hours (ICD-10-PCS; 2017-12-19)
PROC: 0BH17EZ Insertion of Endotracheal Airway into Trachea, Via Natural or Artificial Opening (ICD-10-PCS; 2017-12-19)
PROC: 30233N1 Transfusion of Nonautologous Red Blood Cells into Peripheral Vein, Percutaneous Approach (ICD-10-PCS; 2017-12-20)
PROC: 6A550Z2 Pheresis of Platelets, Single (ICD-10-PCS; 2017-12-20)
PROC: 30233M1 Transfusion of Nonautologous Plasma Cryoprecipitate into Peripheral Vein, Percutaneous Approach (ICD-10-PCS; 2017-12-20)
DX: A41.9 Sepsis, unspecified organism (principal); R65.21 Severe sepsis with septic shock; G93.41 Metabolic encephalopathy; E43 Unspecified severe protein-calorie malnutrition; N18.6 End stage renal disease; J96.01 Acute respiratory failure with hypoxia; J69.0 Pneumonitis due to inhalation of food and vomit; N17.0 Acute kidney failure with tubular necrosis; K25.4 Chronic or unspecified gastric ulcer with hemorrhage; K57.11 Diverticulosis of small intestine without perforation or abscess with bleeding; S22.069A Unspecified fracture of T7-T8 vertebra, initial encounter for closed fracture; D62 Acute posthemorrhagic anemia; E87.1 Hypo-osmolality and hyponatremia; N39.0 Urinary tract infection, site not specified; I12.0 Hypertensive chronic kidney disease with stage 5 chronic kidney disease or end stage renal disease; E87.0 Hyperosmolality and hypernatremia; L03.312 Cellulitis of back [any part except buttock and flank]; I27.20 Pulmonary hypertension, unspecified; K74.60 Unspecified cirrhosis of liver; B19.20 Unspecified viral hepatitis C without hepatic coma; G40.909 Epilepsy, unspecified, not intractable, without status epilepticus; M48.061 Spinal stenosis, lumbar region without neurogenic claudication; E11.65 Type 2 diabetes mellitus with hyperglycemia; E86.0 Dehydration; E87.5 Hyperkalemia; J44.9 Chronic obstructive pulmonary disease, unspecified; F03.90 Unspecified dementia, unspecified severity, without behavioral disturbance, psychotic disturbance, mood disturbance, and anxiety; E11.22 Type 2 diabetes mellitus with diabetic chronic kidney disease; K72.90 Hepatic failure, unspecified without coma; G89.29 Other chronic pain; M54.5 Low back pain; D69.6 Thrombocytopenia, unspecified; I46.9 Cardiac arrest, cause unspecified; K21.0 Gastro-esophageal reflux disease with esophagitis; I25.9 Chronic ischemic heart disease, unspecified; Z53.8 Procedure and treatment not carried out for other reasons; X58.XXXA Exposure to other specified factors, initial encounter; Z87.11 Personal history of peptic ulcer disease; Z87.891 Personal history of nicotine dependence; Z68.24 Body mass index [BMI] 24.0-24.9, adult; Y93.89 Activity, other specified; Y92.89 Other specified places as the place of occurrence of the external cause
CPT/HCPCS: 36415-UA; 36600-90; 71045-TC; 74000-TC; 76700-TC; 80048-TC; 80053-TC; 80061-TC; 80074-90; 80076-TC; 80202-TC; 80329-TC; 81001-TC; 82140-TC; 82150-TC; 82390-90; 82550-TC; 82728-90; 82803-TC; 82948-90; 83036-90; 83516-90; 83540-90; 83550-90; 83605; 83690-TC; 83735-TC; 83880-TC; 84484-TC; 84703-TC; 85007-TC; 85025-TC; 85027-TC; 85384-TC; 85610-TC; 85730-TC; 86703-TC; 86850-TC; 86900-TC; 86901-TC; 86922-TC; 86927-TC; 87070; 87086-90; 87338-TC; 90799; 92950; 93005; 94002; 94003; 94760; 96375; C9113; J0610; J1815; J1940; J1956; J2001; J2370; J3370; J3430; J3480; J7030; J7040; J7042; J7799; P9012; P9016; P9017; P9035; P9046; X6452; X7704; Z7508; Z7610